=== PATIENT | male | born 1980 | race Caucasian/White ===

== ENCOUNTER 2023-05-21 16:15 | Inpatient (IN) | payer OTHER, SELFPAY ==
[2023-05-21] VITALS (10 sets, daily range): BP systolic 167–203; BP diastolic 114–140; PULSE 72–102; RESP 18–25; TEMP 36.6–36.8; O2SAT 95–99; BMI 33.4; BMI 33.5; BMI 32.1
--- NOTE | 2023-05-21 16:19 | CT_ITS ---
PROCEDURE INFORMATION: Exam: CT Head Without Contrast Exam date and time: 05/21/2023 4:28 PM Age: 43 years old Clinical indication: Stroke-like symptoms; Generalized weakness; Additional info: Stroke protocol, unilateral weakness TECHNIQUE: Imaging protocol: Computed tomography of the head without contrast. Radiation optimization: All CT scans at this facility use at least one of these dose optimization techniques: automated exposure control; mA and/or kV adjustment per patient size (includes targeted exams where dose is matched to clinical indication); or iterative reconstruction. Other technique: STROKE PROTOCOL was implemented. REPORTING DATA: Count of CT and Cardiac NM exams in prior 12 months: This patient has received 0 known CTs and 0 known cardiac nuclear medicine studies in the 12 months prior to the current study. COMPARISON: No relevant prior studies available. FINDINGS: Limitations: The study is mildly limited due to patient motion artifact. Brain: There is no acute intracranial hemorrhage, cerebral edema, or midline shift. A chronic left basal ganglia and thomas radiata infarct is present. Cerebral ventricles: No hydrocephalus. Paranasal sinuses: There is no acute sinusitis. Mastoid air cells: Visualized mastoid air cells are well aerated. Orbital cavities: The visualized orbits appear unremarkable. Bones/joints: No acute fracture. Soft tissues: Unremarkable. IMPRESSION: 1. No acute intracranial abnormality. 2. [facility] Stroke Program Early CT Score (ASPECTS) = 10
--- NOTE | 2023-05-21 16:19 | PC.NURSE ---
AFIA MENJIVAR at
--- NOTE | 2023-05-21 16:23 | CT_ITS ---
PROCEDURE INFORMATION: Exam: CTA Head With Contrast, Arteriography Exam date and time: 05/21/2023 4:33 PM Age: 43 years old Clinical indication: Stroke-like symptoms; Generalized weakness; Additional info: Stroke protocol TECHNIQUE: Imaging protocol: Computed tomographic angiography of the head with contrast. Exam focused on the arteries. 3D rendering (Not supervised by radiologist): MIP and/or 3D reconstructed images were created by the technologist. Radiation optimization: All CT scans at this facility use at least one of these dose optimization techniques: automated exposure control; mA and/or kV adjustment per patient size (includes targeted exams where dose is matched to clinical indication); or iterative reconstruction. Contrast material: ISOVUE; Contrast volume: 75 ml; Contrast route: INTRAVENOUS (IV); REPORTING DATA: Count of CT and Cardiac NM exams in prior 12 months: This patient has received 0 known CTs and 0 known cardiac nuclear medicine studies in the 12 months prior to the current study. COMPARISON: CT HEAD/BRAIN WO CON 05/21/2023 4:28 PM FINDINGS: ANTERIOR CIRCULATION: Right internal carotid artery: Intracranial segment is patent with no significant stenosis. No aneurysm. Right middle cerebral artery: There is beading of the right middle cerebral artery, possibly due to fibromuscular dysplasia or vasculitis. This is causing mild/moderate stenosis of the right M1 segment. Right anterior cerebral artery: No occlusion or significant stenosis. No aneurysm. Left internal carotid artery: Intracranial segment is patent with no significant stenosis. No aneurysm. Left middle cerebral artery: There is beading of the left middle cerebral artery, possibly due to fibromuscular dysplasia or vasculitis. This is causing severe stenosis of the distal left M1 segment. Severe stenosis of a posterior/inferior branch of the left MCA is also noted. Left anterior cerebral artery: No occlusion or significant stenosis. No aneurysm. POSTERIOR CIRCULATION: Right vertebral artery: No occlusion or significant stenosis. No aneurysm. Left vertebral artery: No occlusion or significant stenosis. No aneurysm. Basilar artery: No occlusion or significant stenosis. No aneurysm. Right posterior cerebral artery: No occlusion or significant stenosis. No aneurysm. Left posterior cerebral artery: No occlusion or significant stenosis. No aneurysm. Veins: The venous sinuses are patent. IMPRESSION: 1. There is beading of the left middle cerebral artery, possibly due to fibromuscular dysplasia or vasculitis. This is causing severe stenosis of the distal left M1 segment. Severe stenosis of a posterior/inferior branch of the left MCA is also noted. 2. There is beading of the right middle cerebral artery, possibly due to fibromuscular dysplasia or vasculitis. This is causing mild/moderate stenosis of the right M1 segment.
--- NOTE | 2023-05-21 16:23 | CT_ITS ---
PROCEDURE INFORMATION: Exam: CTA Neck With Contrast Exam date and time: 05/21/2023 4:33 PM Age: 43 years old Clinical indication: Stroke-like symptoms; Generalized weakness; Additional info: Stroke protocol TECHNIQUE: Imaging protocol: Computed tomographic angiography of the neck with contrast. 3D rendering (Not supervised by radiologist): MIP and/or 3D reconstructed images were created by the technologist. Radiation optimization: All CT scans at this facility use at least one of these dose optimization techniques: automated exposure control; mA and/or kV adjustment per patient size (includes targeted exams where dose is matched to clinical indication); or iterative reconstruction. Contrast material: ISOVUE; Contrast volume: 75 ml; Contrast route: INTRAVENOUS (IV); REPORTING DATA: Count of CT and Cardiac NM exams in prior 12 months: This patient has received 0 known CTs and 0 known cardiac nuclear medicine studies in the 12 months prior to the current study. COMPARISON: CT HEAD/BRAIN WO CON 05/21/2023 4:28 PM FINDINGS: Limitations: Evaluation is mildly limited by 2.5 mm thick axial images. Right common carotid artery: No stenosis. No dissection or occlusion. Right internal carotid artery: Minimal calcification is present at the right internal carotid artery origin. There is no stenosis. Right external carotid artery: No occlusion or stenosis of the origin. Left common carotid artery: There is mild plaque and luminal irregularity involving the distal left common carotid artery. There is no stenosis. Left internal carotid artery: Minor noncalcified plaque is present at the left internal carotid artery origin. This is causing less than 25% stenosis. Left external carotid artery: No occlusion or stenosis of the origin. Right vertebral artery: No stenosis. No dissection or occlusion. Left vertebral artery: No stenosis. No dissection or occlusion. Dental: Extensive dental disease is present. Soft tissues: Normal. No significant soft tissue swelling. Bones/joints: Moderate degenerative changes of the cervical spine are present. IMPRESSION: 1. No acute abnormality. 2. Chronic findings as discussed above. REFERENCES: NASCET CRITERIA. The degree of stenosis in the cervical segment of the internal carotid artery is based on NASCET criteria. Normal is no stenosis. Mild is less than 50% stenosis. Moderate is 50-69% stenosis. Severe is 70% to 99% stenosis. Total occlusion is no detectable patent lumen.
--- NOTE | 2023-05-21 16:25 | XR_ITS ---
PROCEDURE INFORMATION: Exam: XR Chest Exam date and time: 05/21/2023 4:36 PM Age: 43 years old Clinical indication: Dyspnea TECHNIQUE: Imaging protocol: Radiologic exam of the chest. Views: 1 view. COMPARISON: CT ANGIO NECK 05/21/2023 4:33 PM FINDINGS: Lungs: Unremarkable. No consolidation. Pleural spaces: No pleural effusion. No pneumothorax. Heart/Mediastinum: No significant cardiac silhouette enlargement. Bones/joints: Unremarkable. IMPRESSION: No acute findings.
--- NOTE | 2023-05-21 16:25 | ECG_ITS ---
APPROVED REPORT Exam: Resting ECG HR:87 bpm ECG Measurements Heart Rate 87 AXES OK 163 P -6 QRSd 128 QRS -21 QT 439 T 128 QTc 483 Conclusion SINUS RHYTHM LEFT VENTRICULAR HYPERTROPHY AND ST-T CHANGE [VOLTAGE CRITERIA PLUS ST/T ABNORMALITY] ANTEROLATERAL MYOCARDIAL INFARCTION , PROBABLY RECENT [40+ ms Q WAVE IN I/aVL/V3-V6] ACUTE NC UNCONFIRMED REPORT Electronically signed by : Robbin Scott MD 05/22/2023 06:59:11
--- NOTE | 2023-05-21 16:26 | HMH.EDGENADL ---
Discharge Plan Disposition Chief Complaint: Neuro Symptoms/Deficit Clinical Impressions Clinical Impression: Acute CVA (cerebrovascular accident), Hypertensive emergency, Hypokalemia Discharge ED Provider: Mary Ann Nava General Adult HPI General Chief complaint: Neuro Symptoms/Deficit Stated complaint: L sided numbness Time Seen by Provider: 05/21/23 16:18 History of Present Illness HPI narrative: Patient is a 43-year-old male with a history of hypertension presenting today with sudden onset of right upper and right lower extremity coordination changes and difficulty with movement. States he had sudden onset around 10 to 10:30 AM this morning of his symptoms. He has been having difficulty walking since that time. States that he just has a hard time doing the things that he wants to do with the right side of his body. Denies any changes in mental status changes in vision or changes in strength specifically. No fevers or chills or any other medical problems in the past other than the hypertension and hypokalemia chronically. Related Data Allergies Allergy/AdvReac Type Severity Reaction Status Date / Time lisinopril Allergy Verified 05/21/23 16:18 [facility] Disclaimer: The information contained in this section may have been updated after the patient was seen, as this information can be updated by other users. Social History Smoking Status: Current every day smoker alcohol intake: never current occupational status: other Travel in the last 8 weeks: None ROS Obtained: Yes All systems reviewed & no additional complaints except as documented Physical Exam General General appearance: alert Respiratory Respiratory exam: Present normal lung sounds bilaterally Cardiovascular Cardiovascular exam: Present regular rate; Absent tachycardia Neurological Exam Neurological exam: Present alert and oriented X3 Expanded Neurological Exam Patient oriented to: Present person, place and time Speech: Present fluid speech; Absent receptive aphasia, expressive aphasia or total aphasia Cranial nerves: Normal: EOM function (II, III, IV, ), facial sensation (V), facial palsy (VII), gag reflex (IX), spinal accessory function (XI) and tongue deviation (XII) Cerebellar function: Abnormal Left: finger to nose Cerebellar function: ataxic gait (Difficulty with heel-to-toe walking) Motor strength - LUE: 5/5 Motor strength - RUE: 5/5 Motor strength - LLE: 5/5 Motor strength - RLE: 5/5 Upper motor neuron exam: Normal: eloina neglect, pronator drift, Babinski sign and sensory extinction Sensory exam upper extremity: Normal: light touch, pin prick, temperature and 2 point discrimination Sensory exam lower extremity: Normal: light touch, pin prick, temperature and 2 point discrimination Coma scale eye opening: Spontaneous Coma scale motor response: Obeys commands Coma scale verbal response: Oriented Coma scale total: 15 Medical Decision Making Oskar Inquiry Pt receiving controlled substance: No Vital Signs: 05/21/23 16:16 05/21/23 16:52 Temperature 98.2 F Temperature Source Oral Pulse Rate 86 Pulse Rate [Right] 102 H Respiratory Rate 20 25 H Blood Pressure 186/120 H Blood Pressure [Right Arm] 203/140 H Blood Pressure Mean [Right Arm] 161 Blood Pressure Source [Right Arm] Automatic Cuff Blood Pressure Position [Right Arm] Sitting 02 Sat by Pulse Oximetry 98 96 Oxygen Delivery Method Room Air Room Air Lab Data Lab results reviewed: Yes I reviewed the patient's lab results. Lab Results 05/21/23 16:16: WBC 10.0, RBC 5.90, Hgb 16.1, Hct 49.6, MCV 84.0, MCH 27.2, MCHC 32.4, RDW 14.3, Plt Count 174, MPV 8.6, Neut % (Auto) 61.4, Lymph % (Auto) 29.0, [place] % (Auto) 7.1, Eos % (Auto) 2.0, Baso % (Auto) 0.6, Neut # (Auto) 6.1, Lymph # (Auto) 2.9, [place] # (Auto) 0.7, Eos # (Auto) 0.2, Baso # (Auto) 0.1, PT 10.5, INR 0.97, APTT 28.1, Sodium 133 L, Potassium 2.6 L*, Chloride 96 L, Carbon Dioxide 28, Anion Gap 11.6, BUN 12, C
[2023-05-21 16:32] LABS: Basophils # 0.1 K/mm3 (0-0.2); Basophils % 0.6 % (0.1-2.0); Eosinophils # 0.2 K/mm3 (0.0-0.4); Hematocrit 49.6 % (42.0-52.0); Hemoglobin 16.1 g/dL (14.1-18.0); Lymphocytes # 2.9 K/mm3 (0.7-4.5); Mean Corpuscular HGB Conc 32.4 g/dL (31.8-35.4); Mean Corpuscular Hemoglobin 27.2 pg (27.0-31.2); Mean Platelet Volume 8.6 fl (7.4-10.4); Monocytes # 0.7 K/mm3 (0.1-1.0); Monocytes % 7.1 % (1.7-9.3); Neutrophils # 6.1 K/mm3 (1.8-7.8); Neutrophils % 61.4 % (37.0-80.0); Platelet Count 174 K/mm3 (142-424); Red Cell Distribution Width 14.3 % (11.5-17.5)
[2023-05-21 16:38] LABS: Alanine Aminotransferase 29 U/L (12-78); Albumin Level 4.6 g/dl (3.5-5.0); Albumin/Globulin Ratio 1.3 (1.1-1.8); Alkaline Phosphatase 102 U/L (38-126); Anion Gap 11.6 mEq/L (5-15); Aspartate Amino Transferase 40 U/L (17-59); Bilirubin,Total 0.6 mg/dl (0.2-1.3); Blood Urea Nitrogen 12 mg/dl (9-20); Calcium 9.1 mg/dl (8.4-10.2); Carbon Dioxide 28 mmol/L (22.0-30.0); Chloride 96 mmol/L (98-107); Creatinine Clearance Estimated 119 mL/min (50-200); Estimated Glomerular Filt Rate 66 ml/min (>60); GFR (African American) 80 ML/MIN (>60); Globulin 3.6 g/dL (1.3-3.2); Glucose 103 mg/dl (74-100); Sodium 133 mmol/L (136-145); Total Protein,Serum 8.2 g/dl (6.3-8.2)
[2023-05-21 16:41] LABS: Activated Partial Thrombo Time 28.1 seconds (22.8-30.6); INR 0.97 (0.9-1.1); Prothrombin Time 10.5 seconds (10.1-12.5)
--- NOTE | 2023-05-21 16:41 | PC.NURSE ---
AFIA MENJIVAR speaking with CYRIL
[2023-05-21 16:47] LABS: Potassium 2.6 mmoL/L (3.5-5.1)
--- NOTE | 2023-05-21 16:52 | PC.NURSE ---
ER MD Nava speaking with hospitalist.
--- NOTE | 2023-05-21 16:55 | PC.NURSE ---
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
--- NOTE | 2023-05-21 16:59 | PC.NURSE ---
gave pt a urinal, assisting use
[2023-05-21 17:06] LABS: Coronavirus 19, PCR Not Detected (NotDetected); Influenza A, PCR Not Detected (NotDetected); Influenza B, PCR Not Detected (NotDetected)
--- NOTE | 2023-05-21 17:44 | PC.NURSE ---
AFIA Nava speaking with CYRIL
--- NOTE | 2023-05-21 17:48 | PC.NURSE ---
Report called to Linda RICK
--- NOTE | 2023-05-21 18:07 | PC.NURSE ---
arrived to floor by w/c from ED
--- NOTE | 2023-05-21 18:35 | PC.NURSE ---
med req done from medication bottles, three medication bottles brought, all empty, last filled date on bottles 11/29
--- NOTE | 2023-05-21 19:10 | EXP.HP ---
History of Present Illness *Admission Date: 05/21/23 *Reason for visit:: right upper and lower extremity ataxia x 1 day *History of present illness: 43-year-old male with history of hypertension, who recently moved here to [place] from [place], not established with a primary care, on antihypertensive medication was brought to the emergency room by his as he started experiencing uncoordinated sudden onset movements of his right upper and lower extremity. He said he felt extremely fatigued and tired and was having some dizziness for the last 2 days. He said he ran out of his antihypertensive medications including carvedilol and chlorthalidone probably was running high blood pressure because of this reason. Today while he was at his workplace start experiencing significant uncoordinated movement of his right upper and lower extremity. Then he felt that his legs and arms were significantly weak only on the right side. He had to drag his foot to walk. This made him come to the ER. In the ER stroke protocol was initiated. His initial vitals show that his blood pressure was significantly elevated in the 190s systolic. He was pretty much alert awake oriented x3 and able to give a history. He did not experience any slurred speech or facial droop. His CT scan of head without contrast was unremarkable. His CTA of head and neck showed beading appearance of the left cerebral artery and significant left M1 stenosis and severe stenosis of posterior inferior branch of left MCA. Given his delayed presentation he was not deemed a tPA candidate. He was diagnosed with acute left MCA territory CVA and being admitted for further management. When I saw him in the room patient was able to narrate his history without any difficulty. His is at bedside who agreed to the history. He states his right-sided weakness is unchanged since it started. No other new neurological deficits reported. He has difficulty walking and lifting things with his right hand. His vision is unaffected. He denies any chest pain, shortness of breath, abdominal pain, nausea vomiting, joint pains or skin rashes He is a three-quarter pack smoker for over 20 years. Denies excessive alcohol abuse or illicit drug use. Review of systems negative except for what is mentioned above [facility] Disclaimer: The information contained in this section may have been updated after the patient was seen, as this information can be updated by other users. Medical History Hypertension Family History Mother Lung cancer Father Family history of myocardial infarction Social History Smoking Status: Current every day smoker alcohol intake: never current occupational status: other Travel in the last 8 weeks: None Review of Systems Review of Systems Review of systems:: pertinent systems reviewed and negative unless documented below Meds Home Medications and Allergies Home Medications Medication Instructions Recorded Confirmed Type carvedilol 12.5 mg tablet 12.5 mg PO BID High Blood Pressure 05/21/23 05/21/23 History chlorthalidone 50 mg tablet 50 mg PO DAILY High Blood Pressure 05/21/23 05/21/23 History potassium chloride 20 mEq 20 meq PO TID Supplement 05/21/23 05/21/23 History tablet,extended release New Prescriptions to Start Prescriptions: Allergies Allergy/AdvReac Type Severity Reaction Status Date / Time lisinopril Allergy Verified 05/21/23 18:08 Exam Data for Last 24 hours Vital signs and Labs for Last 24 Hours: Temp Pulse Resp BP Pulse Ox O2 Del Method 98.2 F 77 18 195/114 H 99 Room Air 05/21/23 18:07 05/21/23 18:07 05/21/23 18:07 05/21/23 18:07 05/21/23 18:07 05/21/23 18:48 Laboratory Results - last 24 hr 05/21/23 16:16: WBC 10.0, RBC 5.90, Hgb 16.1, Hct 49.6, MCV 84
[2023-05-21 20:47] LABS: POC Glucose,Bedside 106 (70-110)
--- NOTE | 2023-05-21 21:39 | PC.NURSE ---
LACE ROLLER made aware of BP of 169/117, LACE ROLLER advised RN not to give PRN medication. Stated to only give PRN if BOTH SBP and DBP was greater than 220/110. Also LACE ROLLER made aware of unavailability of 300 mg aspirin suppository, was okay to hold until tomorrow. Pt remains NPO.
[2023-05-22] VITALS (7 sets, daily range): BP systolic 143–159; BP diastolic 86–104; PULSE 60–90; RESP 18; TEMP 36.4–36.9; O2SAT 98–99; BMI 33.1
--- NOTE | 2023-05-22 04:58 | PC.NURSE ---
Patient has rested very well tonight. no issues were stated by patient. Family remains at bedside.
[2023-05-22 06:25] LABS: POC Glucose,Bedside 120 (70-110)
[2023-05-22 08:58] LABS: Alanine Aminotransferase 19 U/L (12-78); Albumin/Globulin Ratio 1.3 (1.1-1.8); Alkaline Phosphatase 109 U/L (38-126); Anion Gap 9.1 mEq/L (5-15); Aspartate Amino Transferase 29 U/L (17-59); Bilirubin,Total 0.7 mg/dl (0.2-1.3); Blood Urea Nitrogen 10 mg/dl (9-20); Calcium 9.1 mg/dl (8.4-10.2); Carbon Dioxide 28 mmol/L (22.0-30.0); Chloride 103 mmol/L (98-107); Chol/HDL Ratio 8.3 (1-3.5); Cholesterol 199 mg/dl (140-200); Creatinine Clearance Estimated 142 mL/min (50-200); Estimated Glomerular Filt Rate 82 ml/min (>60); GFR (African American) 99 ML/MIN (>60); Globulin 3.2 g/dL (1.3-3.2); Glucose 126 mg/dl (74-100); HDL Cholesterol 24 mg/dl (40-60); Magnesium 2.1 mg/dl (1.6-2.3); Phosphorous 2.9 mg/dl (2.5-4.5); Potassium 3.1 mmoL/L (3.5-5.1); Sodium 137 mmol/L (136-145); Total Protein,Serum 7.2 g/dl (6.3-8.2); Triglycerides 291 mg/dl (30-150); VLDL Cholesterol 58 mg/dL (0-40)
[2023-05-22 09:09] LABS: Direct LDL Cholesterol 117.18 mg/dL (100-129)
[2023-05-22 10:04] LABS: Hemoglobin A1C 5.5 % (4.0-6.0)
--- NOTE | 2023-05-22 10:36 | P.CONPHA_ITS ---
Pharmacy Intervention Comments: MEDICATION RECONCILIATION COMPLETE USING MEDICATION BOTTLES. CALLED GRISEL WHO STATED HE HAD FILLED CARVEDILOL, CHLORTHALIDONE, AND POTASSIUM AT [facility] [place] LAST IN 02/2022. MOST RECENT PHARMACY USED (FILLED 11/2022) WAS [facility] [place] WHO IS CLOSED ON THE WEEKEND.
--- NOTE | 2023-05-22 10:36 | HMH.PHAINT1 ---
Pharmacy Intervention Comments: MEDICATION RECONCILIATION COMPLETE USING MEDICATION BOTTLES. CALLED GRISEL WHO STATED HE HAD FILLED CARVEDILOL, CHLORTHALIDONE, AND POTASSIUM AT [facility] [place] LAST IN 02/2022. MOST RECENT PHARMACY USED (FILLED 11/2022) WAS [facility] [place] WHO IS CLOSED ON THE WEEKEND.
[2023-05-22 11:45] LABS: POC Glucose,Bedside 128 (70-110)
--- NOTE | 2023-05-22 12:01 | HMH.PTEV ---
Physical Therapy Evaluation Rehab PT IP Evaluation Start: 05/21/23 17:56 Freq: ONCE Status: Active Protocol: Document 05/22/23 11:40 RADHA (Rec: 05/22/23 12:01 HWADE [id number]) Subjective/History History History Pt is a 43 year old male that presented to [facility] ED with reports of difficulty walking, R sided weakness and uncoordinated movements. While in the ED, stroke protocol was initiated. His initial vitals show that his blood pressure was significantly elevated in the 190s systolic. Pt was AO x3 and able to provide history. Pt did not experience any slurred speech or facial droop. His CT scan of head without contrast was unremarkable. His CTA of head and neck showed beading appearance of the left cerebral artery and significant left M1 stenosis and severe stenosis of posterior inferior branch of left MCA. Pt was not a candidate for tPA due to delayed presentation of symptoms. Pt was diagnosed with acute left MCA territory CVA and being admitted for further management. 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 Pt lives at home with his and adult children in a [facility] with 0 [address]AN[address]. At baseline, pt was independent with all B/ IADL's. Pt did not use an AD to ambulate Subjective Subjective Pt presents supine in bed with at side, pt agreeable to PT evaluation. Pt denies reports of pain at rest. Pt reports that he still feels weakness and difficulty with coordination for RUE and RLE. Pt denies reports of visual or speech dimple
--- NOTE | 2023-05-22 13:49 | HMH.SLDYSPHA ---
Speech & Language Evaluation Speech/Language Dysphagia Evaluation Start: 05/22/23 13:42 Freq: ONCE Status: Active Protocol: Document 05/22/23 13:42 BENNY (Rec: 05/22/23 13:49 BENNY [id number]) Dysphagia Assess/Goals/Plan Assessment Date of Evaluation: 05/22/23 Evaluation Type Initial Certification Assessment/Problems CVA Does Patient Qualify for Service No Qualify/Failure Comment Based on the results of the clinical swallow evaluation, pt does not require further skilled ST services at this time. Recommendations PHYSICIAN CERTIFICATION: The specified therapy services are required, authorized, and reviewed every 30 days. Diet Recommendations Normal Liquid Type Recommendations Normal/Thin SL Swallow Guidelines Alt bite w/sip thru meal Dysphagia Swallow Precautions/Strategies Sitting Upright (90 deg),Small Bites and Sips,Alternate Liquids/Solids Place Food on Either side of Mouth Plan Pt/Guardian verbally ack understanding Yes of dx/prognosis/goals Pt/Guardian verbally ack understanding Yes of/consent to tx prog G -code Required No Education Instructions provided CSE results and recommendations discussed with pt, nursing, and MD who expressed understanding. Pt/Caregiver able to recall information Able to recall/restate Reinforcement needed No Speech & Language HPI History Present Illness Description of Patient Problem Mr. Miramontes is a 43 year old male who presenting to [facility] ED with c/o right upper and lower extremity ataxia. No facial droop or slurred speech was noted in the ED. He was diagnosed with an acute left MCA territory CVA. He does have a history of hypertension , but has not been on his medication for several days. He is currently on a clear liquid diet. Rehab Services Assessed Speech therapy General Information General Current Food Consistancy Clear Liquids Dentition Good Dentition Oxygen Status Room Air Facial Symmetry Symmetrical Patient Orientation Person,Place,Time,Situation Ability to Follow Directions Excellent Communication Ability No Impairment Dysphagia:Food Present
--- NOTE | 2023-05-22 14:45 | EXP.ACUTE.PN ---
Subjective *Date: 05/22/23 *Time: 14:45 Interval history: Blood pressure improving No change in the neuro status overnight, no new deficit. Existing right upper and lower extremity motor deficit persisting Potassium improved from 2.6--> 3.1 A1c 5.5 LDL 117, total cholesterol 291, HDL 24 No new complaints Patient requesting food, passed bedside evaluation with a swallow evaluation and then speech therapy also evaluated and cleared the patient for regular diet Medical Exam Vital signs and Labs for Last 24 Hours: Vital Signs Temp Pulse Pulse Resp BP BP Pulse Ox 05/22/23 13:11 05/22/23 11:09 05/22/23 13:42 05/22/23 07:30 90 05/22/23 09:30 05/22/23 09:30 05/22/23 07:27 97.6 F 68 18 152/93 H 99 05/22/23 04:00 70 05/22/23 04:00 97.7 F 60 18 143/86 H 98 05/22/23 06:49 05/22/23 04:58 05/22/23 03:00 05/22/23 01:00 05/22/23 00:00 70 05/21/23 20:00 80 05/22/23 00:00 98.4 F 72 18 154/104 H 98 05/21/23 23:00 05/21/23 21:00 05/21/23 20:00 05/21/23 20:00 97.8 F 76 18 167/117 H 99 05/21/23 18:48 05/21/23 18:07 98.2 F 77 18 195/114 H 99 05/21/23 17:58 74 18 195/114 H 98 05/21/23 17:31 74 18 193/127 H 95 05/21/23 17:11 79 21 200/139 H 97 05/21/23 16:42 97 H 18 186/120 H 97 05/21/23 16:17 97 H 18 203/140 H 97 05/21/23 17:49 98.2 F 72 20 193/127 H 05/21/23 16:52 86 25 H 186/120 H 96 05/21/23 16:16 98.2 F 102 H 20 203/140 H 98 O2 Del Method 05/22/23 13:11 Room Air 05/22/23 11:09 Room Air 05/22/23 13:42 Room Air 05/22/23 07:30 05/22/23 09:30 Room Air 05/22/23 09:30 Room Air 05/22/23 07:27 Room Air 05/22/23 04:00 05/22/23 04:00 05/22/23 06:49 Room Air 05/22/23 04:58 Room Air 05/22/23 03:00 Room Air 05/22/23 01:00 Room Air 05/22/23 00:00 05/21/23 20:00 05/22/23 00:00 Room Air 05/21/23 23:00 Room Air 05/21/23 21:00 Room Air 05/21/23 20:00 Room Air 05/21/23 20:00 Room Air 05/21/23 18:48 Room Air 05/21/23 18:07 Room Air 05/21/23 17:58 05/21/23 17:31 05/21/23 17:11 05/21/23 16:42 05/21/23 16:17 05/21/23 17:49 Room Air 05/21/23 16:52 Room Air 05/21/23 16:16 Room Air Intake and Output 05/21/23 05/22/23 05/22/23 23:59 07:59 15:59 Intake Total 0 / 360 360 / 360 Output Total 650 / 650 0 / 0 0 / 0 Balance -650 / -650 0 / 360 360 / 360 Intake: Intake, Oral Amount 0 / 360 360 / 360 Output: Output, Urine Amount 650 / 650 0 / 0 0 / 0 Other: Number of Unmeasured Voids 1 1 Weight 101.803 kg 105.035 kg Patient Weight 05/22/23 23:59 Weight 105.035 kg Laboratory Results - last 24 hr 05/21/23 16:16: WBC 10.0, RBC 5.90, Hgb 16.1, Hct 49.6, MCV 84.0, MCH 27.2, MCHC 32.4, RDW 14.3, Plt Count 174, MPV 8.6, Neut % (Auto) 61.4, Lymph % (Auto) 29.0, [place] % (Auto) 7.1, Eos % (Auto) 2.0, Baso % (Auto) 0.6, Neut # (Auto) 6.1, Lymph # (Auto) 2.9, [place] # (Auto) 0.7, Eos # (Auto) 0.2, Baso # (Auto) 0.1, PT 10.5, INR 0.97, APTT 28.1, Sodium 133 L, Potassium 2.6 L*, Chloride 96 L, Carbon Dioxide 28, Anion Gap 11.6, BUN 12, Creatinine 1.20, Estimated Creat Clear 119, Estimated GFR 66, Est GFR ( Amer) 80, Glucose 103 H, Calcium 9.1, Total Bilirubin 0.6, AST 40, ALT 29, Alkaline Phosphatase 102, Total Protein 8.2, Albumin 4.6, Globulin 3.6 H, Albumin/Globulin Ratio 1.3 05/21/23 16:55: SARS-CoV-2 (PCR) Not detected, Influenza A Untype (PCR) Not detected, Influenza Type B (PCR) Not detected 05/21/23 20:36: POC Glucose 106 05/22/23 06:06: POC Glucose 120 H 05/22/23 07:35: Sodium 137, Potassium 3.1 L, Chloride 103, Carbon Dioxide 28, Anion Gap 9.1, BUN 10, Creatinine 1.00, Estimated Creat Clear 142, Estimated GFR 82, Est GFR ( Amer) 99 D, Glucose 126 H D, Hemoglobin A1c 5.5, Calcium 9.1, Phosphorus 2.9, Magnesium 2.1, Total Bilirubin 0.7, AST 29 D,
--- NOTE | 2023-05-22 17:29 | PC.NURSE ---
No acute changes noted. Patient still hypertensive, MD aware. New medications added to slowly decrease blood pressure. Patient alert and oriented times 4 during shift. Weakness noted on right side in both arms and legs but patient able to use both extremities. NIH 4 due to ataxia and drift in right arm and right leg. Patient able to tolerate diet.
--- NOTE | 2023-05-22 18:03 | PC.NURSE ---
No acute changes noted. Patient still hypertensive, MD aware. New medications added to slowly decrease blood pressure. Patient alert and oriented times 4 during shift. Weakness noted on right side in both arms and legs but patient able to use both extremities. NIH 5 due to ataxia, drift in right arm, right leg, and partial sensory loss on right side. Bedside swallow performed and patient able to drink water without difficulty or coughing. MD aware and clear liquid diet ordered. Speech performed swallow eval and recommended regular, thin liquid diet. MD aware and cardiac diet ordered. Patient able to tolerate diet and po medications.
--- NOTE | 2023-05-23 00:30 | EXP.PN ---
Subjective *Date: 05/23/23 *Time: 12:44 Interval history: No acute events overnight. His right side feels stronger than yesterday. Exam Data for Last 24 hours Vital signs and Labs for Last 24 Hours: Temp Pulse Resp BP Pulse Ox O2 Del Method 98 F 75 18 159/94 H 99 Room Air 05/22/23 20:00 05/22/23 20:00 05/22/23 20:00 05/22/23 20:00 05/22/23 15:51 05/22/23 23:00 Laboratory Results - last 24 hr 05/22/23 06:06: POC Glucose 120 H 05/22/23 07:35: Sodium 137, Potassium 3.1 L, Chloride 103, Carbon Dioxide 28, Anion Gap 9.1, BUN 10, Creatinine 1.00, Estimated Creat Clear 142, Estimated GFR 82, Est GFR ( Amer) 99 D, Glucose 126 H D, Hemoglobin A1c 5.5, Calcium 9.1, Phosphorus 2.9, Magnesium 2.1, Total Bilirubin 0.7, AST 29 D, ALT 19 D, Alkaline Phosphatase 109, Total Protein 7.2, Albumin 4.0 D, Globulin 3.2, Albumin/Globulin Ratio 1.3, Triglycerides 291 H, Cholesterol 199, LDL Cholesterol Direct 117.18, VLDL Cholesterol 58 H, HDL Cholesterol 24 L, Cholesterol/HDL Ratio 8.3 H 05/22/23 11:29: POC Glucose 128 H I & O for Last 24 hours: Intake & Output 05/20/23 05/21/23 05/22/23 05/23/23 23:59 23:59 23:59 23:59 Intake Total 840 / 840 Output Total 650 / 650 0 / 0 Balance -650 / -650 840 / 840 Weight 101.803 kg 105.035 kg Constitutional Constitutional: no acute distress *Routine HEENT Exam Head: Present normocephalic Eye: Present EOMI and PERRL ENT: Present mucous membranes moist *Routine Neck Exam Neck: Present supple; Absent lymphadenopathy *Routine Respiratory Exam Respiratory: Present CTA bilaterally *Routine Cardiovascular Exam Cardiovascular: Present RRR *Routine Abdominal Exam Abdominal: Present soft and normoactive bowel sounds; Absent tenderness *Routine Extremities Exam Extremities: Absent cyanosis, clubbing or edema *Routine Skin Exam Skin: Present warm; Absent rash *Routine Neurological Exam Neurological: Present alert, oriented X3 and CN II-XII intact Comments: sensation to light touch is symmetric strength in RUE is 4/5, strength in RLE is 3 to 4/5 finger to nose with RUE is poor heel to bach exam is normal bilaterally Assessment and Plan *Assessment and plan (1) Acute CVA (cerebrovascular accident): Status: Acute Category: Medical Code(s): I63.9 - Cerebral infarction, unspecified (2) Hypertensive emergency: Status: Acute Category: Medical Code(s): I16.1 - Hypertensive emergency (3) Hypokalemia: Status: Acute Category: Medical Code(s): E87.6 - Hypokalemia (4) Noncompliance with medication regimen: Status: Acute Category: Medical Code(s): Z91.148 - Patient's other noncompliance with medication regimen for other reason (5) Nicotine dependence: Status: Acute Qualifiers: Nicotine product type: cigarettes Substance use status: unspecified nicotine-induced disorder Qualified Code(s): F17.219 - Nicotine dependence, cigarettes, with unspecified nicotine-induced disorders Category: Medical Code(s): F17.200 - Nicotine dependence, unspecified, uncomplicated Plan Mr. Miramontes is a 43 year old male with a past medical history of hypertension, cigarette nicotine dependence (>10 pack year history), who recently moved from [place] and hasn't established care with a PCP, who presented with weakness and involuntary movements of the right upper and lower extremities. He was admitted on 05/21 acute CVA of the left MCA territory. TPA could not be administered due to his late presentation. #apical thrombus, 1.5cm -I received preliminary report of the patient's echocardiogram regarding a 1.5cm apical thrombus. Will consult Cardiology. #acute CVA, left MCA territory -CTA head/neck with beading appearance of the left cerebral artery with stenosis of the left M1 and significant stenosis of the posterior/inferior branch of the left MCA -A1c is 5.5, LDL 117, total cholesterol 291, HD
[2023-05-23 04:00] VITALS: BP 157/109; PULSE 72; RESP 18; TEMP 36.5; O2SAT 97; BMI 33.1
--- NOTE | 2023-05-23 04:50 | PC.NURSE ---
Patient has rested well. Patient did ambulate down the hallway before bed with a walker and stand by assist. Did very well. Still stated weakness on that right side. No issues were stated by patient or family
--- NOTE | 2023-05-23 06:00 | MR_ITS ---
FINAL REPORT TECHNIQUE: Multiplanar MR, without contrast administration CLINICAL HISTORY: Left MCA territory CVA. STROKE. RIGHT SIDED WEAKNESS COMPARISON: 05/21/2023 FINDINGS: There is no mass effect or midline shift. There is no hydrocephalus. Abnormal signal intensity is seen in the left basal ganglia and left periventricular white matter. In the more medial and anterior left basal ganglia is abnormality with decreased signal intensity on gradient echo imaging suggestive of hemosiderin. Focal atrophy is seen of the more anterior periventricular white matter. Posterior fossa is without acute abnormality. On diffusion-weighted imaging, restricted diffusion is seen in the posterior left basal ganglia and posterior left periventricular white matter consistent with acute ischemia. IMPRESSION: Acute infarct of the posterior left basal ganglia and left periventricular white matter. Likely chronic ischemic changes, more anteriorly in the left basal ganglia and anterior left periventricular right matter with evidence of hemosiderin. Reviewed, Interpreted and Dictated by Susanne Daugherty MD Transcribed by Halima Jama Authenticated and [facility]
[2023-05-23 06:38] LABS: Anion Gap 8.5 mEq/L (5-15); Blood Urea Nitrogen 15 mg/dl (9-20); Calcium 8.6 mg/dl (8.4-10.2); Carbon Dioxide 26 mmol/L (22.0-30.0); Chloride 104 mmol/L (98-107); Creatinine Clearance Estimated 142 mL/min (50-200); Estimated Glomerular Filt Rate 82 ml/min (>60); GFR (African American) 99 ML/MIN (>60); Glucose 137 mg/dl (74-100); Potassium 3.5 mmoL/L (3.5-5.1); Sodium 135 mmol/L (136-145)
[2023-05-23 08:00] VITALS: BP 151/94; PULSE 73; RESP 17; TEMP 36.6; O2SAT 97
--- NOTE | 2023-05-23 08:48 | PC.NURSE ---
IV placed to left forearm 20 gauge.
--- NOTE | 2023-05-23 10:34 | PC.NURSE ---
pt to rad
--- NOTE | 2023-05-23 11:01 | HMH.OTEV ---
OT Inpatient Evaluation Rehab OT IP Evaluation Start: 05/21/23 17:56 Freq: ONCE Status: Active Protocol: Document 05/23/23 10:54 [facility] (Rec: 05/23/23 11:00 [facility] [id number]) Rehab OT IP Assessment Subjective History Pt oriented x 3 on arrival. Pt is a 43 year old male that presented to [facility] ED with reports of difficulty walking, R sided weakness and uncoordinated movements. While in the ED, stroke protocol was initiated. His initial vitals show that his blood pressure was significantly elevated in the 190s systolic. Pt was AO x3 and able to provide history. Pt did not experience any slurred speech or facial droop. His CT scan of head without contrast was unremarkable. His CTA of head and neck showed beading appearance of the left cerebral artery and significant left M1 stenosis and severe stenosis of posterior inferior branch of left MCA. Pt was not a candidate for tPA due to delayed presentation of symptoms. Pt was diagnosed with acute left MCA territory CVA and being admitted for further management. PMH: HTN Pt lives at home with his and children. 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 Pt is normally independent with all ADLs and IADLs. Pt still drives. Pt did not use an AD to ambulate Subjective I just want it to get back to normal. Objective Patient Orientation Person,Place,Birthday Upper Extremity Gross ROM Mod Limitation 50% Shoulder ROM Limitations Muscle Weakness Elbow ROM Limitations Muscle Weakness Wrist Limitations of Range of Motion Muscle Weakness Bed Mobility bed mobility-scooting,bed mobility - supine/sit,bed
--- NOTE | 2023-05-23 11:43 | SW/DCPLANNER ---
Addendum entered by Linda Magaña 05/30/23 11:40: The plan for this patient is to discharge home w/ family assistance and return to [facility] outpatient rehab. Patient will discharge today. Addendum entered by Linda Magaña 05/26/23 15:01: Patient plans to return home w/ family at time of discharge. Original Note: I spoke with this patient's regarding plans once medically stable for discharge. stated they just moved to [place] w/ their two daughters and do not currently have health insurance. I have asked that Mary Ann Vergara speak w/ patient today regarding situation. Patient/family would be interested in placement at [facility] if he is able to be set up w/ health insurance. I will continue to follow up with patient/family and MD.
[2023-05-23 14:15] LABS: Benzodiazepines Screen,Urine Negative ng/ml (<200)
[2023-05-23 14:16] LABS: Amphetamine/Metha Screen,Urine Negative ng/ml (<1000)
[2023-05-23 14:17] LABS: Barbiturates Screen,Urine Negative ng/ml (<200); Cannabinoid Screen,Urine Negative ng/ml (<50)
[2023-05-23 14:18] LABS: Cocaine Screen,Urine Negative ng/ml (<300); Methadone Screen,Urine Negative ng/ml (<300)
[2023-05-23 14:19] LABS: Opiate Screen,Urine Negative ng/ml (<300)
[2023-05-23 14:20] LABS: Phencyclidine Screen,Urine Negative ng/ml (<25)
[2023-05-23 15:16] VITALS: BP 148/90; PULSE 75; RESP 17; TEMP 36.6; O2SAT 98
--- NOTE | 2023-05-23 16:40 | HMH.PHAHEP ---
[facility] Pharmacy Heparin Dosing Demographic Data Admission date:: 05/23/23 Date: 05/23/23 Time: 16:40 Allergies Allergy/AdvReac Type Severity Reaction Status Date / Time lisinopril Allergy Verified 05/21/23 18:08 Height: 1.78 m Weight: 105 kg Indication Medication therapy:: Heparin Current Indications:: LEFT THOMBOSIS AND STROKE Current Active Problems (Updated 05/30/23 @ 12:49 by Grace Brand APRN) Nicotine dependence (Acute) Acute CVA (cerebrovascular accident) (Acute) Myocardial infarction of anterior wall (Acute) LV (left ventricular) mural thrombus following ND (Acute) Hypertensive emergency (Acute) Hypokalemia (Acute) Noncompliance with medication regimen (Acute) CVA?: Yes Bleeding problem?: No Kidney disease?: No ND?: No Desired PTT range:: 50-75 seconds Labs Anticoagulation Lab Results:: A Monitoring Dose Monitor 1: Date: 05/23/23 Time: 16:25 PTT Result:: 29.2 Infusion Rate:: 1900 UNITS/HR (38 ML/HR), 8400 UNITS BOLUS Dose Monitor 2: Date: 05/23/23 Time: 19:36 PTT Result:: 88.0 Infusion Rate:: 2110 UNITS/HR (42.2 ML/HR) Dose Monitor 3: Date: 05/24/23 Time: 04:13 PTT Result:: 68.6 Infusion Rate:: 2110 UNITS/HR (42.2 ML/HR) Dose Monitor 4: Date: 05/24/23 Time: 10:00 PTT Result:: 64.5 Infusion Rate:: 2110 UNITS/HR (42.2 ML/HR) Dose Monitor 5: Date: 05/24/23 Time: 18:20 PTT Result:: 27.6 Infusion Rate:: 2110 UNITS/HR (42.2 ML/HR) REBOLUS WITH 4000 UNITS. Dose Monitor 6: Date: 05/25/23 Time: 02:45 PTT Result:: 80.4 Infusion Rate:: 2000 UNITS/HR (40 ML/HR) Dose Monitor 7: Date: 05/25/23 Time: 08:22 PTT Result:: 78.0 Infusion Rate:: 2000 UNITS/HR (40 ML/HR) Dose Monitor 8: Date: 05/25/23 Time: 12:56 PTT Result:: 74.4 Infusion Rate:: 2000 UNITS/HR (40 ML/HR) Dose Monitor 9: Date: 05/25/23 Time: 20:45 PTT Result:: 56.4 Infusion Rate:: 2000 UNITS/HR (40 ML/HR) Dose Monitor 10: Date: 05/26/23 Time: 03:00 PTT Result:: 67.9 Infusion Rate:: 2000 UNITS/HR (40 ML/HR) Dose Monitor 11: Date: 05/26/23 Time: 08:53 PTT Result:: 72.9 Infusion Rate:: HEPARIN 2000 UNITS/HR Dose Monitor 12: Date: 05/26/23 Time: 14:57 PTT Result:: 70.8 Infusion Rate:: 2000 UNITS/HR Dose Monitor 13: Date: 05/26/23 Time: 20:55 PTT Result:: 75.8 Infusion Rate:: HEPARIN 2000 UNITS/HR Dose Monitor 14: Date: 05/27/23 Time: 06:05 PTT Result:: 68.1 Infusion Rate:: HEPARIN 2000 UNITS/HR Dose Monitor 15: Date: 05/27/23 Time: 17:50 PTT Result:: 89.1 Infusion Rate:: HEPARIN 1800 UNITS/HR Dose Monitor 16: Date: 05/28/23 Time: 00:37 PTT Result:: 84.7 Infusion Rate:: HEPARIN 1700 UNITS/HR Dose Monitor 17: Date: 05/28/23 Time: 06:46 PTT Result:: 59.5 Infusion Rate:: HEPARIN 1700 UNITS/HR Dose Monitor 18: Date: 05/28/23 Time: 18:06 PTT Result:: 94.8 Infusion Rate:: HEPARIN 1500 UNITS/HR Dose Monitor 19: Date: 05/29/23 Time: 01:12 PTT Result:: 84.0 Infusion Rate:: HEPARIN 1400 UNITS/HR Dose Monitor 20: Date: 05/29/23 Time: 08:14 PTT Result:: 80.5 Infusion Rate:: HEPARIN 1200 UNITS/HR Dose Monitor 21: Date: 05/29/23 Time: 13:10 PTT Result:: 63.9 Infusion Rate:: HEPARIN 1200 UNITS/HR Dose Monitor 22: Date: 05/29/23 Time: 21:15 PTT Result:: 55.5 Infusion Rate:: HEPARIN 1200 UNIT/HR Dose Monitor 23: Date: 05/30/23 Time: 06:03 PTT Result:: 69.3 Infusion Rate:: HEPARIN
--- NOTE | 2023-05-23 16:58 | EXP.CARD.CON ---
History of Present Illness History of Present Illness Consult date: 05/23/23 Requesting physician: Sam Cope Consult reason: hypertension Chief complaint: CVA. LV thrombus Additional Medical History:: 1. Hypertension, treated for about 2 to 3 years 2. Tobacco use since age 8 up to 2 packs/day, discontinued 2 months ago 3. Acute left MCA CVA, 05/21/2023 felt secondary to LV thrombus on echo A. Right upper and lower extremity weakness 4. Anterior CA by EKG with confirmation of wall motion abnormality on echocardiogram, 05/23/2023 5. LV thrombus on echocardiogram 05/23/2023 History of present illness: 43-year-old male with history of hypertension, who recently moved here to [facility], not established with a primary care, on antihypertensive medication was brought to the emergency room by his as he started experiencing uncoordinated sudden onset movements of his right upper and lower extremity. He said he felt extremely fatigued and tired and was having some dizziness for the last 2 days. He said he ran out of his antihypertensive medications including carvedilol and chlorthalidone probably was running high blood pressure because of this reason. Today while he was at his workplace start experiencing significant uncoordinated movement of his right upper and lower extremity. Then he felt that his legs and arms were significantly weak only on the right side. He had to drag his foot to walk. This made him come to the ER. In the ER stroke protocol was initiated. His initial vitals show that his blood pressure was significantly elevated in the 190s systolic. He was pretty much alert awake oriented x3 and able to give a history. He did not experience any slurred speech or facial droop. His CT scan of head without contrast was unremarkable. His CTA of head and neck showed beading appearance of the left cerebral artery and significant left M1 stenosis and severe stenosis of posterior inferior branch of left MCA. Given his delayed presentation he was not deemed a tPA candidate. He was diagnosed with acute left MCA territory CVA and being admitted for further management. When I saw him in the room patient was able to narrate his history without any difficulty. His is at bedside who agreed to the history. He states his right-sided weakness is unchanged since it started. No other new neurological deficits reported. He has difficulty walking and lifting things with his right hand. His vision is unaffected. He denies any chest pain, shortness of breath, abdominal pain, nausea vomiting, joint pains or skin rashes He is a three-quarter pack smoker for over 20 years. Denies excessive alcohol abuse or illicit drug use. Review of systems negative except for what is mentioned above. The above per Dr. Phoenix, Hospitalist 43-year-old white male presented to the ER with 6-hour history of right side weakness in upper and lower extremities. ER work-up revealed left MCA distribution CVA that was beyond the interval for acute intervention. Echo on 05/23/2023 shows EF about 50% with anterior hypokinesis and LV thrombus. EKG on 05/21/2023 is sinus with evidence of anterior CA. Pt denies any history of CAD or recent chest pain, SOA or chest tightness. Results of echo discussed with patient with recommendation for LHC, carotid angiogram and renal angiogram in AM. [facility] Disclaimer: The information contained in this section may have been updated after the patient was seen, as this information can be updated by other users. Medical History Hypertension Family History Mother Lung cancer Father Family history of myocardial infarction Social History Smoking Status: Current every day smoker alcohol intake: never current occupational status: other Travel in the last 8 weeks: None
[2023-05-23 17:12] LABS: C-Reactive Protein 20.1 mg/L (0-4)
[2023-05-23 17:29] LABS: PTT Heparin (inpatient only) 29.2 Seconds (23.6-34.0)
[2023-05-23 19:55] VITALS: BP 175/113; PULSE 98; RESP 16; TEMP 36.6; O2SAT 97
--- NOTE | 2023-05-23 19:57 | PC.NURSE ---
Heparin drip started at 1929, with [employer] RN. PTT put in for 2329.
[2023-05-23 21:00] VITALS: PULSE 60
[2023-05-23 21:48] LABS: Erythrocyte Sedimentation Rate 16 mm/hr (0-15)
[2023-05-24] VITALS (22 sets, daily range): BP systolic 133–198; BP diastolic 68–112; PULSE 57–90; RESP 16–21; TEMP 36.4–37.1; O2SAT 95–100; BMI 33.1
--- NOTE | 2023-05-24 04:11 | PC.NURSE ---
Patient has rested some tonight. Heparin drip still on. No issues stated by patient or family
[2023-05-24 04:24] LABS: Basophils % 0.5 % (0.1-2.0); Eosinophils # 0.3 K/mm3 (0.0-0.4); Hematocrit 43.7 % (42.0-52.0); Hemoglobin 14.5 g/dL (14.1-18.0); Lymphocytes # 3.2 K/mm3 (0.7-4.5); Lymphocytes % 40.4 % (10-50); Mean Corpuscular Hemoglobin 27.9 pg (27.0-31.2); Mean Corpuscular Volume 84.5 fl (80-94); Monocytes # 0.5 K/mm3 (0.1-1.0); Monocytes % 6.3 % (1.7-9.3); Neutrophils # 3.8 K/mm3 (1.8-7.8); Neutrophils % 48.7 % (37.0-80.0); Platelet Count 144 K/mm3 (142-424); Red Blood Count 5.18 M/mm3 (4.60-6.20); Red Cell Distribution Width 14.5 % (11.5-17.5); White Blood Count 7.8 K/mm3 (4.8-10.8)
[2023-05-24 04:27] LABS: Chloride 104 mmol/L (98-107); Potassium 3.2 mmoL/L (3.5-5.1); Sodium 138 mmol/L (136-145)
[2023-05-24 04:29] LABS: Blood Urea Nitrogen 14 mg/dl (9-20); Creatinine Clearance Estimated 141 mL/min (50-200); Estimated Glomerular Filt Rate 82 ml/min (>60); GFR (African American) 99 ML/MIN (>60)
[2023-05-24 04:30] LABS: Anion Gap 8.2 mEq/L (5-15); Calcium 8.6 mg/dl (8.4-10.2); Carbon Dioxide 29 mmol/L (22.0-30.0); Glucose 111 mg/dl (74-100)
[2023-05-24 04:32] LABS: PTT Heparin (inpatient only) 68.6 Seconds (23.6-34.0)
--- NOTE | 2023-05-24 04:55 | PC.NURSE ---
PTT called to Mala Ochoa. No change in Heparin drip
--- NOTE | 2023-05-24 06:46 | IR_ITS ---
APPROVED REPORT Patient Location: Inpatient PROCEDURES Selective coronary angiogram Intravascular lithotripsy to the proximal LAD Intravascular lithotripsy to the mid LAD Drug-eluting stent deployment to the proximal mid and distal LAD in a contiguous manner Drug-eluting stent deployment to the distal left main artery extending into the proximal LAD with noncontiguous stenting in the LAD Intravascular ultrasound to the LAD and left main artery Attempted angioplasty of a chronically occluded dominant right coronary artery Bilateral selective renal angiography INDICATION Acute anterior myocardial infarction, 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 COMPLICATIONS None Estimated Blood Loss: Less than 10 mls TECHNIQUE One percent lidocaine was used to anesthetize the right groin. The right femoral artery was accessed via the Seldinger technique. A 4-Ukrainian sheath was placed in the right femoral artery. A JL 4 and a JR4 catheter were used to perform selective coronary angiography as well as bilateral selective renal angiography. At the end of the procedure I broke scrub and contacted cardiothoracic surgery [facility]. I spoke with Dr. Chanel regarding the patient's anatomy and recent anterior myocardial infarction accompanied by an LV thrombus and acute embolic MCA stroke. After lengthy discussion Dr. Chanel both concluded patient was not a candidate for bypass surgery and it was recommended to proceed with percutaneous intervention which I was in complete agreement. At the end the diagnostic angiogram therapeutic heparin was administered giving a therapeutic ACT and an EBU 3.75 guide catheter was placed in left main artery followed by Choice PT extra-support wire going through the chronically occluded LAD. A 2.5 mm balloon was used to predilate the mid LAD subtotal occlusion. An intravascular lithotripsy 3 mm x 12 mm shockwave balloon was deployed for a total of 80 pulsations at 4, 6 and 8 barbra. A 2.5 x 38 mm Nav frontier stent was initially deployed at 12 barbra reducing the stenosis to 0%. An additional 2.25 x 22 mm Nav frontier stent was placed distal to the first stent yet still overlapping it and deployed at 16 barbra. An additional 2 mm x 12 mm Nav frontier stent was placed distal to the stent yet still overlapping and deployed at 12 barbra. The balloon was brought back and deployed at 20 barbra to mesh the stents. An additional 2 mm x 12 mm frontier stent was then placed distal to the last stent that was placed yet still overlapping and deployed at 12 barbra. The balloon was brought back and deployed at 16 and 18 barbra to mesh the stents. 800 mcg of intracoronary nitroglycerin was administered. Following this a 3 mm x 38 mm Nav frontier stent was placed proximal to the first 2.5 mm stent yet still overlapping it and deployed at 20 barbra. An additional 4 mm x 12 mm Nav frontier stent was placed proximal to the 3.5 mm stent yet still overlapping it and deployed at 20 barbra. The balloon was advanced and deployed at 20 and then 24 barbra which failed to reduce the mid LAD stenosis. At this point a 4 mm x 12 mm intravascular lithotripsy shockwave balloon was deployed for a total of 80 pulsations at 4, 6 and 10 barbra. Following this a 4 mm x 12 mm noncompliant balloon was deployed at 24 barbra in the mid LAD to further reduce the stenosis. The balloon was also brought back into the proximal segment and deployed at 24 barbra. Following this a 5 mm x 15 mm Nav frontier stent was placed in the distal left main artery stenting the prox
--- NOTE | 2023-05-24 09:10 | CT_ITS ---
FINAL REPORT TECHNIQUE: Thin section axial images were obtained from skull base to vertex without contrast. Coronal reconstruction images were obtained from the axial data. Exam was performed using dose reduction technique. CLINICAL HISTORY: Worsening hemiparesis COMPARISON: 05/21/2023 FINDINGS: There is no mass effect or midline shift. There is no hydrocephalus. There is no intracranial hemorrhage. The posterior fossa is without acute abnormality. The basilar cisterns are preserved. There is a hypodense focus in the posterior left basal ganglia that corresponds with edema on the recent MRI of 05/21. There are no new areas of decreased density intracranially. The soft tissues are without acute abnormality. No acute osseous abnormality is identified. IMPRESSION: No evidence of hemorrhage is identified. No new mass or midline shift is seen. Evolving left basal ganglia infarct. Reviewed, Interpreted and Dictated by Susanne Daugherty MD Transcribed by Malissa Lopez Authenticated and . [facility]
--- NOTE | 2023-05-24 09:30 | PC.NURSE ---
Patient being transferred down for head CT at this time via wheelchair at this time.
--- NOTE | 2023-05-24 09:31 | EXP.CARD.PN ---
Subjective Subjective Date: 05/24/23 Time: 09:31 Principal diagnosis: CVA, LV thrombus and recent [place] Interval history: 43-year-old white male in bed in no acute distress. Denies any chest pain overnight but feels that his right side is getting weaker. Patient was examined by physical therapy this morning with assessment being that his right side is the same or possibly a little stronger. He is still able to ambulate with assistance. Discussed with Dr. Benedict. We will discontinue heparin and obtain stat CT of the head to rule out hemorrhagic CVA conversion. If CT of the head is negative then we will proceed with left heart catheterization, renal angiogram and possibly carotid angiogram. Exam Data for Last 24 hours Vital signs and Labs for Last 24 Hours: Temp Pulse Resp BP Pulse Ox O2 Del Method 97.6 F 69 16 167/93 H 99 Room Air 05/24/23 07:29 05/24/23 07:29 05/24/23 07:29 05/24/23 07:29 05/24/23 07:29 05/24/23 07:29 Laboratory Results - last 24 hr 05/23/23 05:57: Troponin I 0.10 H, C-Reactive Protein 20.1 H 05/23/23 13:44: Urine Opiates Screen Negative, Urine Methadone Screen Negative, Ur Barbituates Screen Negative, Ur Phencyclidine Scrn Negative, Ur Amphetamines Screen Negative, U Benzodiazepines Scrn Negative, Urine Cocaine Screen Negative, U Marijuana (THC) Screen Negative 05/23/23 16:45: APTT 29.2 05/23/23 20:25: ESR 16 H 05/23/23 23:15: APTT 88.0 H* 05/24/23 04:13: WBC 7.8, RBC 5.18, Hgb 14.5, Hct 43.7, MCV 84.5, MCH 27.9, MCHC 33.0, RDW 14.5, Plt Count 144, MPV 9.0, Neut % (Auto) 48.7, Lymph % (Auto) 40.4, [place] % (Auto) 6.3, Eos % (Auto) 4.0, Baso % (Auto) 0.5, Neut # (Auto) 3.8, Lymph # (Auto) 3.2, [place] # (Auto) 0.5, Eos # (Auto) 0.3, Baso # (Auto) 0.0, APTT 68.6 H*, Sodium 138, Potassium 3.2 L, Chloride 104, Carbon Dioxide 29, Anion Gap 8.2, BUN 14, Creatinine 1.00, Estimated Creat Clear 141, Estimated GFR 82, Est GFR ( Amer) 99, Glucose 111 H, Calcium 8.6 I & O for Last 24 hours: Intake & Output 05/21/23 05/22/23 05/23/23 05/24/23 11:59 11:59 11:59 11:59 Intake Total 0 / 0 840 / 1080 480 / 480 Output Total 650 / 650 850 / 850 1000 / 1000 Balance -650 / -650 -10 / 230 -520 / -520 Weight 231 lb 9 oz 231 lb 9 oz 231 lb 7.766 oz Constitutional Constitutional: no acute distress *Routine Respiratory Exam Respiratory: Present CTA bilaterally *Routine Cardiovascular Exam Cardiovascular: Present RRR *Routine Neurological Exam Comments: Right-sided hemiparesis Progress Note: A&P Assessment and plan (1) Acute CVA (cerebrovascular accident): Status: Acute (2) Hypertensive emergency: Status: Acute (3) Nicotine dependence: Status: Acute (4) Myocardial infarction of anterior wall: Status: Acute (5) Noncompliance with medication regimen: Status: Acute (6) LV (left ventricular) mural thrombus following OK: Status: Acute Assessment and Plan Assessment and Plan for All Diagnoses:: 1. CVA, acute, Left MCA with R sided weakness felt secondary to LV thrombus Stop heparin and get CT of head without contrast due to pt feeling weakness is worse. Carotid angiogram today if CT of head negative 2. Anterior [place] with abnormal Echo (anterior WMA and LV thrombus) with EF 40-45% continue coreg and irbesartan Continue atorvastatin, LDL 117, HDL, 24, TG 291, Chol [address] of head negative 3. HTN Renal angiogram today if CT of head negative Continue carvedilol and irbesartan 4. Nicotine dependence with recent cessation 5. Possible vasculitis ESR 16 CRP 20.1 6. Hypokalemia, will replace
[2023-05-24 10:26] LABS: PTT Heparin (inpatient only) 64.5 Seconds (23.6-34.0)
[2023-05-24 14:41] LABS: CATHL Activated Clotting Time > 400 SEC (74-125)
[2023-05-24 14:43] LABS: CATHL Activated Clotting Time 389 SEC (74-125)
--- NOTE | 2023-05-24 16:00 | EXP.PN ---
Subjective *Date: 05/24/23 *Time: 16:00 Interval history: No acute events overnight increased strength in right arm and right leg Exam Data for Last 24 hours Vital signs and Labs for Last 24 Hours: Temp Pulse Resp BP Pulse Ox O2 Del Method 97.6 F 64 18 140/98 H 98 Room Air 05/24/23 07:29 05/24/23 13:50 05/24/23 13:50 05/24/23 13:50 05/24/23 13:50 05/24/23 13:50 Laboratory Results - last 24 hr 05/23/23 05:57: Troponin I 0.10 H, C-Reactive Protein 20.1 H 05/23/23 16:45: APTT 29.2 05/23/23 20:25: ESR 16 H 05/23/23 23:15: APTT 88.0 H* 05/24/23 04:13: WBC 7.8, RBC 5.18, Hgb 14.5, Hct 43.7, MCV 84.5, MCH 27.9, MCHC 33.0, RDW 14.5, Plt Count 144, MPV 9.0, Neut % (Auto) 48.7, Lymph % (Auto) 40.4, [place] % (Auto) 6.3, Eos % (Auto) 4.0, Baso % (Auto) 0.5, Neut # (Auto) 3.8, Lymph # (Auto) 3.2, [place] # (Auto) 0.5, Eos # (Auto) 0.3, Baso # (Auto) 0.0, APTT 68.6 H*, Sodium 138, Potassium 3.2 L, Chloride 104, Carbon Dioxide 29, Anion Gap 8.2, BUN 14, Creatinine 1.00, Estimated Creat Clear 141, Estimated GFR 82, Est GFR ( Amer) 99, Glucose 111 H, Calcium 8.6 05/24/23 10:00: APTT 64.5 H* 05/24/23 10:52: Activated Clotting Time 389 H* 05/24/23 11:24: Activated Clotting Time > 400 H* I & O for Last 24 hours: Intake & Output 05/21/23 05/22/23 05/23/23 05/24/23 23:59 23:59 23:59 23:59 Intake Total 840 / 840 480 / 480 0 / 0 Output Total 650 / 650 0 / 0 1750 / 1750 100 / 100 Balance -650 / -650 840 / 840 -1270 / -1270 -100 / -100 Weight 101.803 kg 105.035 kg 105 kg 105 kg Constitutional Constitutional: no acute distress *Routine HEENT Exam Head: Present normocephalic Eye: Present EOMI and PERRL ENT: Present mucous membranes moist *Routine Neck Exam Neck: Present supple; Absent lymphadenopathy *Routine Respiratory Exam Respiratory: Present CTA bilaterally *Routine Cardiovascular Exam Cardiovascular: Present RRR *Routine Abdominal Exam Abdominal: Present soft and normoactive bowel sounds; Absent tenderness *Routine Extremities Exam Extremities: Absent cyanosis, clubbing or edema *Routine Skin Exam Skin: Present warm; Absent rash *Routine Neurological Exam Neurological: Present alert, oriented X3 and CN II-XII intact Comments: sensation to light touch is symmetric strength in RUE is 4 to 5/5, strength in RLE is 4 to 5/5 finger to nose with RUE is poor Assessment and Plan *Assessment and plan (1) Acute CVA (cerebrovascular accident): Status: Acute Category: Medical Code(s): I63.9 - Cerebral infarction, unspecified (2) Hypertensive emergency: Status: Acute Category: Medical Code(s): I16.1 - Hypertensive emergency (3) Hypokalemia: Status: Acute Category: Medical Code(s): E87.6 - Hypokalemia (4) Noncompliance with medication regimen: Status: Acute Category: Medical Code(s): Z91.148 - Patient's other noncompliance with medication regimen for other reason (5) Nicotine dependence: Status: Acute Qualifiers: Nicotine product type: cigarettes Substance use status: unspecified nicotine-induced disorder Qualified Code(s): F17.219 - Nicotine dependence, cigarettes, with unspecified nicotine-induced disorders Category: Medical Code(s): F17.200 - Nicotine dependence, unspecified, uncomplicated Plan Mr. Miramontes is a 43 year old male with a past medical history of hypertension, cigarette nicotine dependence (>10 pack year history), who recently moved from [place] and hasn't established care with a PCP, who presented with weakness and involuntary movements of the right upper and lower extremities. He was admitted on 05/21 acute CVA of the left MCA territory. TPA could not be administered due to his late presentation. hospital course was complicated by discovery of apical thrombus on echocardiogram. #apical thrombus, 1.5cm -heparin drip per cardiology. C, carotid angiogram and renal angiogram today #ac
--- NOTE | 2023-05-24 18:00 | PC.NURSE ---
Contacted Dr. Cope concerning pts BP. Hospitalist rufinoed to contact cardiology for further instruction.
[2023-05-24 18:53] LABS: PTT Heparin (inpatient only) 27.6 Seconds (23.6-34.0)
[2023-05-25] VITALS (10 sets, daily range): BP systolic 115–159; BP diastolic 67–99; PULSE 59–87; RESP 22–32; TEMP 36.4–36.7; O2SAT 97–99; BMI 32.5
--- NOTE | 2023-05-25 01:20 | ECG_ITS ---
APPROVED REPORT Exam: Resting ECG HR:71 bpm ECG Measurements Heart Rate 71 AXES ND 172 P 62 QRSd 126 QRS 95 QT 476 T -49 QTc 498 Conclusion SINUS RHYTHM POSSIBLE LEFT ATRIAL ENLARGEMENT [-0.1mV P-WAVE IN V1/V2] INDETERMINATE AXIS ANTEROLATERAL MYOCARDIAL INFARCTION , PROBABLY RECENT with development of inferior infarct changes since last tracing ACUTE FL UNCONFIRMED REPORT Electronically signed by : Robbin Scott MD 05/25/2023 21:18:16
--- NOTE | 2023-05-25 01:28 | PC.NURSE ---
Spoke to Dr. Benedict concerning change in rhythm. Pt had 18 beat run of SVT with a narrowing pulse pressure. BP currently 131/107. Obtained an EKG and sent to him. No new orders at this time. No acute distress noted and will continue to monitor.
[2023-05-25 03:19] LABS: PTT Heparin (inpatient only) 80.4 Seconds (23.6-34.0)
[2023-05-25 05:46] LABS: Basophils # 0.1 K/mm3 (0-0.2); Basophils % 0.7 % (0.1-2.0); Eosinophils # 0.3 K/mm3 (0.0-0.4); Eosinophils % 3.6 % (0.1-12.0); Hematocrit 48.5 % (42.0-52.0); Hemoglobin 15.9 g/dL (14.1-18.0); Lymphocytes # 2.7 K/mm3 (0.7-4.5); Lymphocytes % 28.6 % (10-50); Mean Corpuscular HGB Conc 32.8 g/dL (31.8-35.4); Mean Corpuscular Hemoglobin 27.6 pg (27.0-31.2); Mean Corpuscular Volume 84.2 fl (80-94); Mean Platelet Volume 8.9 fl (7.4-10.4); Monocytes # 0.5 K/mm3 (0.1-1.0); Monocytes % 5.5 % (1.7-9.3); Neutrophils # 5.8 K/mm3 (1.8-7.8); Neutrophils % 61.6 % (37.0-80.0); Platelet Count 173 K/mm3 (142-424); Red Blood Count 5.76 M/mm3 (4.60-6.20); Red Cell Distribution Width 14.6 % (11.5-17.5); White Blood Count 9.4 K/mm3 (4.8-10.8)
[2023-05-25 05:56] LABS: Anion Gap 11.4 mEq/L (5-15); Blood Urea Nitrogen 12 mg/dl (9-20); Calcium 9.3 mg/dl (8.4-10.2); Carbon Dioxide 25 mmol/L (22.0-30.0); Chloride 104 mmol/L (98-107); Creatinine Clearance Estimated 154 mL/min (50-200); Estimated Glomerular Filt Rate 92 ml/min (>60); GFR (African American) 111 ML/MIN (>60); Glucose 126 mg/dl (74-100); Potassium 3.4 mmoL/L (3.5-5.1); Sodium 137 mmol/L (136-145)
--- NOTE | 2023-05-25 09:03 | EXP.CARD.PN ---
Subjective Subjective Date: 05/25/23 Time: 09:04 Principal diagnosis: CVA, LV thrombus and recent [place] Interval history: 43-year-old white male in bed in no acute distress. Right arm and leg seem to be improving in strength and mobility. Results of cardiac catheterization discussed with both the patient and his significant other. Exam Data for Last 24 hours Vital signs and Labs for Last 24 Hours: Temp Pulse Resp BP Pulse Ox O2 Del Method FiO2 97.6 F 69 32 H 131/84 97 Room Air 99 05/25/23 07:44 05/25/23 08:00 05/25/23 08:00 05/25/23 08:00 05/25/23 08:00 05/25/23 08:00 05/25/23 00:00 Laboratory Results - last 24 hr 05/24/23 10:00: APTT 64.5 H* 05/24/23 10:52: Activated Clotting Time 389 H* 05/24/23 11:24: Activated Clotting Time > 400 H* 05/24/23 18:20: APTT 27.6 05/25/23 02:45: APTT 80.4 H* 05/25/23 05:40: WBC 9.4, RBC 5.76, Hgb 15.9, Hct 48.5, MCV 84.2, MCH 27.6, MCHC 32.8, RDW 14.6, Plt Count 173, MPV 8.9, Neut % (Auto) 61.6, Lymph % (Auto) 28.6, [place] % (Auto) 5.5, Eos % (Auto) 3.6, Baso % (Auto) 0.7, Neut # (Auto) 5.8, Lymph # (Auto) 2.7, [place] # (Auto) 0.5, Eos # (Auto) 0.3, Baso # (Auto) 0.1, Sodium 137, Potassium 3.4 L, Chloride 104, Carbon Dioxide 25, Anion Gap 11.4, BUN 12, Creatinine 0.90, Estimated Creat Clear 154, Estimated GFR 92, Est GFR ( Amer) 111, Glucose 126 H, Calcium 9.3 I & O for Last 24 hours: Intake & Output 05/22/23 05/23/23 05/24/23 05/25/23 11:59 11:59 11:59 11:59 Intake Total 0 / 0 840 / 1080 480 / 480 1767.8 / 1767.8 Output Total 650 / 650 850 / 850 1000 / 1000 1000 / 1000 Balance -650 / -650 -10 / 230 -520 / -520 767.8 / 767.8 Weight 231 lb 9 oz 231 lb 9 oz 231 lb 7.766 oz 227 lb 3 oz Constitutional Constitutional: no acute distress *Routine Respiratory Exam Respiratory: Present CTA bilaterally *Routine Cardiovascular Exam Cardiovascular: Present RRR *Routine Extremities Exam Comments: Right side hemiparesis noted Progress Note: A&P Assessment and plan (1) Acute CVA (cerebrovascular accident): Status: Acute (2) Hypertensive emergency: Status: Acute (3) Hypokalemia: Status: Acute (4) Noncompliance with medication regimen: Status: Acute (5) Nicotine dependence: Status: Acute (6) LV (left ventricular) mural thrombus following [place]: Status: Acute Assessment and Plan Assessment and Plan for All Diagnoses:: 1. CVA, acute, Left MCA with R sided weakness felt secondary to LV thrombus CT of head yesterday negative for acute bleed Heparin resumed, will also start Coumadin therapy per pharmacy management with goal INR of 2.5-3.0 Defer management to hospitalist Carotid angiogram not performed 2. Anterior TN with abnormal Echo (anterior WMA and LV thrombus) with EF 40-45% with apical, distal septal and inferior gibson akinetic continue coreg and start Entresto today Continue atorvastatin, LDL 117, HDL, 24, TG 291, Chol 199 6 CELENA to LAD and 1 CELENA to left main/LAD, 05/24/2023, unable to open proximal RCA occlusion but left to right collaterals noted. Circumflex is nondominant with mild proximal CAD 3. HTN Renal angiogram negative for GERALD Continue carvedilol and Entresto 4. Nicotine dependence with recent cessation 5. Possible vasculitis ESR 16 CRP 20.1 6. Hypokalemia, improving will replace Continue IV heparin until Coumadin therapeutic Recommend cardiac rehab
--- NOTE | 2023-05-25 10:22 | DIET.NUTRFU ---
Met with patient this morning and provided education on cardiac diet and vitamin K/Coumadin interactions. Pt reported experiencing heartburn during stay with no related medications currently being provided. Will notify .
--- NOTE | 2023-05-25 11:00 | PC.NURSE ---
notified MD that pt cannot tolerate IV potassium, pt moaning and extremely uncomfortable, MD stated to give PO dose a little later
--- NOTE | 2023-05-25 11:38 | PC.NURSE ---
courtesy tech koffi: pt is sitting up in bed with call light at BS. no requests voiced at this time.
[2023-05-25 13:31] LABS: PTT Heparin (inpatient only) 74.4 Seconds (23.6-34.0)
--- NOTE | 2023-05-25 15:18 | PC.NURSE ---
0800-bp 131/84, stopped nitro drip at this time
--- NOTE | 2023-05-25 16:07 | PC.NURSE ---
courtesy tech round: pt is sitting up in chair. pt requests for lights to stay off for personal preference. no more needs are voiced at this time. call light is at BS
--- NOTE | 2023-05-25 18:02 | EXP.PN ---
Subjective *Date: 05/25/23 *Time: 18:02 Interval history: No acute events overnight He feels like his right side is stronger but continues to have trouble with fine movements. Exam Data for Last 24 hours Vital signs and Labs for Last 24 Hours: Temp Pulse Resp BP Pulse Ox O2 Del Method FiO2 98.0 F 60 32 H 131/84 99 Room Air 99 05/25/23 14:59 05/25/23 16:00 05/25/23 08:00 05/25/23 08:00 05/25/23 08:00 05/25/23 16:39 05/25/23 00:00 Laboratory Results - last 24 hr 05/24/23 18:20: APTT 27.6 05/25/23 02:45: APTT 80.4 H* 05/25/23 05:40: WBC 9.4, RBC 5.76, Hgb 15.9, Hct 48.5, MCV 84.2, MCH 27.6, MCHC 32.8, RDW 14.6, Plt Count 173, MPV 8.9, Neut % (Auto) 61.6, Lymph % (Auto) 28.6, [place] % (Auto) 5.5, Eos % (Auto) 3.6, Baso % (Auto) 0.7, Neut # (Auto) 5.8, Lymph # (Auto) 2.7, [place] # (Auto) 0.5, Eos # (Auto) 0.3, Baso # (Auto) 0.1, Sodium 137, Potassium 3.4 L, Chloride 104, Carbon Dioxide 25, Anion Gap 11.4, BUN 12, Creatinine 0.90, Estimated Creat Clear 154, Estimated GFR 92, Est GFR ( Amer) 111, Glucose 126 H, Calcium 9.3 05/25/23 08:22: APTT 78.0 H* 05/25/23 12:56: APTT 74.4 H* I & O for Last 24 hours: Intake & Output 05/22/23 05/23/23 05/24/23 05/25/23 23:59 23:59 23:59 23:59 Intake Total 840 / 840 480 / 480 248.0 / 248.0 2299.8 / 2299.8 Output Total 0 / 0 1750 / 1750 450 / 450 2950 / 2950 Balance 840 / 840 -1270 / -1270 -202.0 / -202.0 -650.2 / -650.2 Weight 105.035 kg 105 kg 105 kg 103.051 kg Constitutional Constitutional: no acute distress *Routine HEENT Exam Head: Present normocephalic Eye: Present EOMI and PERRL ENT: Present mucous membranes moist *Routine Neck Exam Neck: Present supple; Absent lymphadenopathy *Routine Respiratory Exam Respiratory: Present CTA bilaterally *Routine Cardiovascular Exam Cardiovascular: Present RRR *Routine Abdominal Exam Abdominal: Present soft and normoactive bowel sounds; Absent tenderness *Routine Extremities Exam Extremities: Absent cyanosis, clubbing or edema *Routine Skin Exam Skin: Present warm; Absent rash *Routine Neurological Exam Neurological: Present alert, oriented X3 and CN II-XII intact Assessment and Plan *Assessment and plan (1) Acute CVA (cerebrovascular accident): Status: Acute Category: Medical Code(s): I63.9 - Cerebral infarction, unspecified (2) Hypertensive emergency: Status: Acute Category: Medical Code(s): I16.1 - Hypertensive emergency (3) Hypokalemia: Status: Acute Category: Medical Code(s): E87.6 - Hypokalemia (4) Noncompliance with medication regimen: Status: Acute Category: Medical Code(s): Z91.148 - Patient's other noncompliance with medication regimen for other reason (5) Nicotine dependence: Status: Acute Qualifiers: Nicotine product type: cigarettes Substance use status: unspecified nicotine-induced disorder Qualified Code(s): F17.219 - Nicotine dependence, cigarettes, with unspecified nicotine-induced disorders Category: Medical Code(s): F17.200 - Nicotine dependence, unspecified, uncomplicated Plan Mr. Miramontes is a 43 year old male with a past medical history of hypertension, cigarette nicotine dependence (>10 pack year history), who recently moved from [place] and hasn't established care with a PCP, who presented with weakness and involuntary movements of the right upper and lower extremities. He was admitted on 05/21 acute CVA of the left MCA territory. TPA could not be administered due to his late presentation. hospital course was complicated by discovery of apical thrombus on echocardiogram. #apical thrombus, 1.5cm -heparin drip and coumadin INR goal 2.5-3.0. He will need a LifeVest prior to discharge home. #Acute anterior STEMI -successful intravascular lithotripsy of a chronically subtotally occluded proximal and mid LAD with 6 contiguous drug-eluting stents extending from the proximal mid and dis
--- NOTE | 2023-05-25 18:29 | PC.NURSE ---
PT HAS BEEN WATCHING TV IN BED, NO NEEDS OR C/O NOTED THUS FAR. AT BEDSIDE. HEPARIN DRIP CONTINUES TO RUN. VSS.
[2023-05-25 21:23] LABS: PTT Heparin (inpatient only) 56.4 Seconds (23.6-34.0)
--- NOTE | 2023-05-25 22:35 | PC.NURSE ---
THIS RN CALLED THE [facility] FOR NEW ORDERS FOR PTT / HEPARIN GTT. PTT IS THERAPEUTIC SO NO NEW ORDERS FOR HEPARIN GTT. LEÓN FROM THE [facility] WANTED A NEW PTT ORDERED FOR 6 HOURS AFTER LAST DRAWN. THIS RN PLACED ORDER PER PHARMACY TELEPHONE ORDER.
[2023-05-26] VITALS (7 sets, daily range): BP systolic 110–134; BP diastolic 69–83; PULSE 68–90; RESP 18–22; TEMP 36.4–36.8; O2SAT 95–100; BMI 33.4
[2023-05-26 03:28] LABS: Basophils # 0.1 K/mm3 (0-0.2); Basophils % 0.7 % (0.1-2.0); Eosinophils # 0.5 K/mm3 (0.0-0.4); Eosinophils % 4.2 % (0.1-12.0); Hemoglobin 15.6 g/dL (14.1-18.0); Lymphocytes # 3.8 K/mm3 (0.7-4.5); Lymphocytes % 34.4 % (10-50); Mean Corpuscular HGB Conc 33.3 g/dL (31.8-35.4); Mean Corpuscular Hemoglobin 28.4 pg (27.0-31.2); Mean Corpuscular Volume 85.3 fl (80-94); Monocytes # 0.7 K/mm3 (0.1-1.0); Monocytes % 6.4 % (1.7-9.3); Neutrophils % 54.4 % (37.0-80.0); Platelet Count 177 K/mm3 (142-424); Red Blood Count 5.51 M/mm3 (4.60-6.20); Red Cell Distribution Width 14.5 % (11.5-17.5)
[2023-05-26 03:33] LABS: Anion Gap 12.8 mEq/L (5-15); Blood Urea Nitrogen 14 mg/dl (9-20); Calcium 9.3 mg/dl (8.4-10.2); Carbon Dioxide 25 mmol/L (22.0-30.0); Chloride 102 mmol/L (98-107); Creatinine Clearance Estimated 126 mL/min (50-200); Estimated Glomerular Filt Rate 73 ml/min (>60); GFR (African American) 88 ML/MIN (>60); Glucose 137 mg/dl (74-100); Magnesium 2.1 mg/dl (1.6-2.3); Potassium 3.8 mmoL/L (3.5-5.1); Sodium 136 mmol/L (136-145)
[2023-05-26 03:35] LABS: PTT Heparin (inpatient only) 67.9 Seconds (23.6-34.0)
[2023-05-26 03:40] LABS: INR 0.97 (0.9-1.1); Prothrombin Time 10.5 seconds (10.1-12.5)
--- NOTE | 2023-05-26 03:53 | PC.NURSE ---
@[id number] FROM [facility] CALLED THIS RN TO DISCUSS PT'S HEPARIN GTT. PTT IS 67.9 AND WITHIN THERAPEUTIC RANGE AND NO CHANGES TO GTT WERE MADE. AMEE FROM [facility] SAID SHE WOULD PUT IN NEW ORDERS FOR THE NEXT PTT.
[2023-05-26 09:29] LABS: PTT Heparin (inpatient only) 72.9 Seconds (23.6-34.0)
--- NOTE | 2023-05-26 09:37 | PC.NURSE ---
APTT RESULT CALLED TO PHARMACY. TOLD IT IS IN RANGE, RATE WILL STAY THE SAME.
[2023-05-26 15:29] LABS: PTT Heparin (inpatient only) 70.8 Seconds (23.6-34.0)
--- NOTE | 2023-05-26 15:39 | EXP.CARD.PN ---
Subjective Subjective Date: 05/26/23 Time: 15:39 Principal diagnosis: CVA, LV thrombus and recent [place] Interval history: 43-year-old white male in bedside chair no acute distress. Right side weakness continues to slowly improve. INR today was 0.9 He continues on IV heparin Exam Data for Last 24 hours Vital signs and Labs for Last 24 Hours: Temp Pulse Resp BP Pulse Ox O2 Del Method FiO2 98.1 F 70 20 110/75 99 Room Air 99 05/26/23 12:00 05/26/23 12:00 05/26/23 12:00 05/26/23 12:00 05/26/23 12:00 05/26/23 14:38 05/25/23 00:00 Laboratory Results - last 24 hr 05/25/23 20:45: APTT 56.4 H* 05/26/23 03:00: WBC 11.0 H, RBC 5.51, Hgb 15.6, Hct 47.0, MCV 85.3, MCH 28.4, MCHC 33.3, RDW 14.5, Plt Count 177, MPV 8.0, Neut % (Auto) 54.4, Lymph % (Auto) 34.4, [place] % (Auto) 6.4, Eos % (Auto) 4.2, Baso % (Auto) 0.7, Neut # (Auto) 6.0, Lymph # (Auto) 3.8, [place] # (Auto) 0.7, Eos # (Auto) 0.5 H, Baso # (Auto) 0.1, PT 10.5, INR 0.97, APTT 67.9 H*, Sodium 136, Potassium 3.8, Chloride 102, Carbon Dioxide 25, Anion Gap 12.8, BUN 14, Creatinine 1.10 D, Estimated Creat Clear 126, Estimated GFR 73, Est GFR ( Amer) 88 D, Glucose 137 H, Calcium 9.3, Magnesium 2.1 05/26/23 08:53: APTT 72.9 H* 05/26/23 14:57: APTT 70.8 H* I & O for Last 24 hours: Intake & Output 05/24/23 05/25/23 05/26/23 05/27/23 11:59 11:59 11:59 11:59 Intake Total 480 / 480 1767.8 / 1767.8 2463 / 2463 480 / 480 Output Total 1000 / 1000 1600 / 1600 2600 / 2600 720 / 720 Balance -520 / -520 167.8 / 167.8 -137 / -137 -240 / -240 Weight 231 lb 7.766 oz 227 lb 3.017 oz 233 lb 4.8 oz *Routine Respiratory Exam Respiratory: Present CTA bilaterally *Routine Cardiovascular Exam Cardiovascular: Present RRR; Absent murmur, gallop or rubs Progress Note: A&P Assessment and plan (1) Acute CVA (cerebrovascular accident): Status: Acute (2) Hypertensive emergency: Status: Acute (3) Hypokalemia: Status: Acute (4) Noncompliance with medication regimen: Status: Acute (5) Nicotine dependence: Status: Acute (6) LV (left ventricular) mural thrombus following [place]: Status: Acute Assessment and Plan Assessment and Plan for All Diagnoses:: 1. CVA, acute, Left MCA with R sided weakness felt secondary to LV thrombus CT of head yesterday negative for acute bleed Heparin resumed, will also start Coumadin therapy per pharmacy management with goal INR of 2.5-3.0 Defer management to hospitalist Carotid angiogram not performed Outpt referral to Neuro 2. Anterior SD with abnormal Echo (anterior WMA and LV thrombus) with EF 40-45% with apical, distal septal and inferior gibson akinetic continue coreg and Entresto Continue atorvastatin, LDL 117, HDL, 24, TG 291, Chol 199 6 CELENA to LAD and 1 CELENA to left main/LAD, 05/24/2023, unable to open prox RCA occlusion but Left to Right collaterals noted. Circumflex is nondominant with mild proximal CAD 3. HTN Renal angiogram negative for GERALD Continue carvedilol and Entresto 4. Nicotine dependence with recent cessation 5. Possible vasculitis ESR 16 CRP 20.1 6. Hypokalemia, improving will replace Continue IV heparin until Coumadin therapeutic Recommend cardiac rehab
--- NOTE | 2023-05-26 15:46 | PC.NURSE ---
NOTIFIED PHARMACY OF PTT-70.8. KEEPING RATE IS.
--- NOTE | 2023-05-26 18:38 | EXP.PN ---
Subjective *Date: 05/26/23 *Time: 22:40 Interval history: No acute events overnight Exam Data for Last 24 hours Vital signs and Labs for Last 24 Hours: Temp Pulse Resp BP Pulse Ox O2 Del Method FiO2 98.2 F 78 18 134/83 96 Room Air 99 05/26/23 16:00 05/26/23 16:00 05/26/23 16:00 05/26/23 16:00 05/26/23 16:00 05/26/23 16:43 05/25/23 00:00 Laboratory Results - last 24 hr 05/25/23 20:45: APTT 56.4 H* 05/26/23 03:00: WBC 11.0 H, RBC 5.51, Hgb 15.6, Hct 47.0, MCV 85.3, MCH 28.4, MCHC 33.3, RDW 14.5, Plt Count 177, MPV 8.0, Neut % (Auto) 54.4, Lymph % (Auto) 34.4, Nuckolls % (Auto) 6.4, Eos % (Auto) 4.2, Baso % (Auto) 0.7, Neut # (Auto) 6.0, Lymph # (Auto) 3.8, Nuckolls # (Auto) 0.7, Eos # (Auto) 0.5 H, Baso # (Auto) 0.1, PT 10.5, INR 0.97, APTT 67.9 H*, Sodium 136, Potassium 3.8, Chloride 102, Carbon Dioxide 25, Anion Gap 12.8, BUN 14, Creatinine 1.10 D, Estimated Creat Clear 126, Estimated GFR 73, Est GFR ( Amer) 88 D, Glucose 137 H, Calcium 9.3, Magnesium 2.1 05/26/23 08:53: APTT 72.9 H* 05/26/23 14:57: APTT 70.8 H* I & O for Last 24 hours: Intake & Output 05/23/23 05/24/23 05/25/23 05/26/23 23:59 23:59 23:59 23:59 Intake Total 480 / 480 248.0 / 248.0 2299.8 / 2299.8 2643 / 2643 Output Total 1750 / 1750 450 / 450 2950 / 2950 1620 / 1620 Balance -1270 / -1270 -202.0 / -202.0 -650.2 / -650.2 1023 / 1023 Weight 105 kg 105 kg 103.051 kg 105.823 kg Constitutional Constitutional: no acute distress *Routine HEENT Exam Head: Present normocephalic Eye: Present EOMI and PERRL ENT: Present mucous membranes moist *Routine Neck Exam Neck: Present supple; Absent lymphadenopathy *Routine Respiratory Exam Respiratory: Present CTA bilaterally *Routine Cardiovascular Exam Cardiovascular: Present RRR *Routine Abdominal Exam Abdominal: Present soft and normoactive bowel sounds; Absent tenderness *Routine Extremities Exam Extremities: Absent cyanosis, clubbing or edema *Routine Skin Exam Skin: Present warm; Absent rash *Routine Neurological Exam Neurological: Present alert, oriented X3 and CN II-XII intact Assessment and Plan *Assessment and plan (1) Acute CVA (cerebrovascular accident): Status: Acute Category: Medical Code(s): I63.9 - Cerebral infarction, unspecified (2) Hypertensive emergency: Status: Acute Category: Medical Code(s): I16.1 - Hypertensive emergency (3) Hypokalemia: Status: Acute Category: Medical Code(s): E87.6 - Hypokalemia (4) Noncompliance with medication regimen: Status: Acute Category: Medical Code(s): Z91.148 - Patient's other noncompliance with medication regimen for other reason (5) Nicotine dependence: Status: Acute Qualifiers: Nicotine product type: cigarettes Substance use status: unspecified nicotine-induced disorder Qualified Code(s): F17.219 - Nicotine dependence, cigarettes, with unspecified nicotine-induced disorders Category: Medical Code(s): F17.200 - Nicotine dependence, unspecified, uncomplicated Plan Mr. Miramontes is a 43 year old male with a past medical history of hypertension, cigarette nicotine dependence (>10 pack year history), who recently moved from [place] and hasn't established care with a PCP, who presented with weakness and involuntary movements of the right upper and lower extremities. He was admitted on 05/21 acute CVA of the left MCA territory. TPA could not be administered due to his late presentation. hospital course was complicated by discovery of apical thrombus on echocardiogram. #apical thrombus, 1.5cm -heparin drip and coumadin INR goal 2.5-3.0. #Acute anterior STEMI -successful intravascular lithotripsy of a chronically subtotally occluded proximal and mid LAD with 6 contiguous drug-eluting stents extending from the proximal mid and distal LAD. successful stenting of the distal left main artery extending to the proximal LAD. -aspirin,
--- NOTE | 2023-05-26 19:04 | PC.NURSE ---
A&OX4. TOLERATING RA WELL. AT BEDSIDE. PT HAS NOT HAD ANY NEEDS OR C/O NOTED THUS FAR THIS SHIFT. UP INDEPENDENTLY IN ROOM. HAS SHOWERED THIS MORNING. VSS.
[2023-05-26 21:31] LABS: PTT Heparin (inpatient only) 75.8 Seconds (23.6-34.0)
[2023-05-27] VITALS (8 sets, daily range): BP systolic 116–153; BP diastolic 64–85; PULSE 69–83; RESP 18–20; TEMP 36.4–37.1; O2SAT 96–99; BMI 32.4
[2023-05-27 06:25] LABS: PTT Heparin (inpatient only) 68.1 Seconds (23.6-34.0)
[2023-05-27 08:21] LABS: INR 1.11 (0.9-1.1); Prothrombin Time 11.9 seconds (10.1-12.5)
--- NOTE | 2023-05-27 10:13 | P.PN_ITS ---
Subjective Subjective Date: 05/27/23 Time: 10:13 Principal diagnosis: CVA, LV thrombus and recent [place] Interval history: 43-year-old white male in bed in no acute distress. Right arm and leg weakness continues to improve slightly. Patient is now ambulating in the good with a walker and assistance. INR today was 1.11 and is managed by the Coumadin clinic Exam Data for Last 24 hours Vital signs and Labs for Last 24 Hours: Temp Pulse Resp BP Pulse Ox O2 Del Method FiO2 97.7 F 83 18 128/81 99 Room Air 99 05/27/23 08:00 05/27/23 08:00 05/27/23 08:00 05/27/23 08:00 05/27/23 08:00 05/27/23 10:01 05/25/23 00:00 Laboratory Results - last 24 hr 05/26/23 14:57: APTT 70.8 H* 05/26/23 20:55: APTT 75.8 H* 05/27/23 06:05: PT 11.9, INR 1.11 H, APTT 68.1 H* I & O for Last 24 hours: Intake & Output 05/24/23 05/25/23 05/26/23 05/27/23 11:59 11:59 11:59 11:59 Intake Total 480 / 480 1767.8 / 1767.8 2463 / 2463 1320 / 1320 Output Total 1000 / 1000 1600 / 1600 2600 / 2600 4920 / 4920 Balance -520 / -520 167.8 / 167.8 -137 / -137 -3600 / -3600 Weight 231 lb 7.766 oz 227 lb 3.017 oz 233 lb 4.8 oz 226 lb 7 oz Constitutional Constitutional: no acute distress *Routine Respiratory Exam Respiratory: Present CTA bilaterally *Routine Cardiovascular Exam Cardiovascular: Present RRR Progress Note: A&P Assessment and plan (1) Acute CVA (cerebrovascular accident): Status: Acute (2) Hypertensive emergency: Status: Acute (3) Hypokalemia: Status: Acute (4) Noncompliance with medication regimen: Status: Acute (5) Nicotine dependence: Status: Acute (6) LV (left ventricular) mural thrombus following [place]: Status: Acute Assessment and Plan Assessment and Plan for All Diagnoses:: 1. CVA, acute, Left MCA with R sided weakness felt secondary to LV thrombus CT of head negative for acute bleed Heparin with Coumadin therapy per pharmacy management with goal INR of 2.5- 3.0 Defer management to hospitalist Carotid angiogram not performed Outpt referral to Neuro 2. 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 Circumflex is nondominant with mild proximal CAD 3. HTN Renal angiogram negative for GERALD Continue carvedilol and Entresto 4. Nicotine dependence with recent cessation 5. Possible vasculitis ESR 16 CRP 20.1 6. Hypokalemia, resolved Continue IV heparin until Coumadin therapeutic or he could be sent home with lovenox until INR is around 2.5. Home medication recommendations Aspirin 81 mg daily for a total of 30 days from the time of stenting then discontinue Plavix 75 mg daily Coumadin as directed by Coumadin clinic to get INR to around 2.5 Lovenox 1 mg/kg subcutaneously every 12 hours until INR therapeutic Entresto 49/51 mg twice daily Coreg 12.5 mg twice daily Atorvastatin 40 mg daily Follow-up in our office in 1 week Recommend cardiac rehab
--- NOTE | 2023-05-27 17:59 | EXP.PN ---
Subjective *Date: 05/27/23 *Time: 22:13 Interval history: No acute events overnight Exam Data for Last 24 hours Vital signs and Labs for Last 24 Hours: Temp Pulse Resp BP Pulse Ox O2 Del Method FiO2 98.7 F 80 18 119/64 98 Room Air 99 05/27/23 15:41 05/27/23 16:00 05/27/23 15:41 05/27/23 15:41 05/27/23 15:41 05/27/23 16:14 05/25/23 00:00 Laboratory Results - last 24 hr 05/26/23 20:55: APTT 75.8 H* 05/27/23 06:05: PT 11.9, INR 1.11 H, APTT 68.1 H* I & O for Last 24 hours: Intake & Output 05/24/23 05/25/23 05/26/23 05/27/23 23:59 23:59 23:59 23:59 Intake Total 248.0 / 248.0 2299.8 / 2299.8 2643 / 2643 1720 / 1720 Output Total 450 / 450 2950 / 2950 2120 / 4720 5450 / 5450 Balance -202.0 / -202.0 -650.2 / -650.2 523 / -2077 -3730 / -3730 Weight 105 kg 103.051 kg 105.823 kg 102.71 kg Constitutional Constitutional: no acute distress *Routine HEENT Exam Head: Present normocephalic Eye: Present EOMI and PERRL ENT: Present mucous membranes moist *Routine Neck Exam Neck: Present supple; Absent lymphadenopathy *Routine Respiratory Exam Respiratory: Present CTA bilaterally *Routine Cardiovascular Exam Cardiovascular: Present RRR *Routine Abdominal Exam Abdominal: Present soft and normoactive bowel sounds; Absent tenderness *Routine Extremities Exam Extremities: Absent cyanosis, clubbing or edema *Routine Skin Exam Skin: Present warm; Absent rash *Routine Neurological Exam Neurological: Present alert and oriented X3 Assessment and Plan *Assessment and plan (1) Acute CVA (cerebrovascular accident): Status: Acute Category: Medical Code(s): I63.9 - Cerebral infarction, unspecified (2) Hypertensive emergency: Status: Acute Category: Medical Code(s): I16.1 - Hypertensive emergency (3) Hypokalemia: Status: Acute Category: Medical Code(s): E87.6 - Hypokalemia (4) Noncompliance with medication regimen: Status: Acute Category: Medical Code(s): Z91.148 - Patient's other noncompliance with medication regimen for other reason (5) Nicotine dependence: Status: Acute Qualifiers: Nicotine product type: cigarettes Substance use status: unspecified nicotine-induced disorder Qualified Code(s): F17.219 - Nicotine dependence, cigarettes, with unspecified nicotine-induced disorders Category: Medical Code(s): F17.200 - Nicotine dependence, unspecified, uncomplicated Plan Mr. Miramontes is a 43 year old male with a past medical history of hypertension, cigarette nicotine dependence (>10 pack year history), who recently moved from [place] and hasn't established care with a PCP, who presented with weakness and involuntary movements of the right upper and lower extremities. He was admitted on 05/21 acute CVA of the left MCA territory. TPA could not be administered due to his late presentation. hospital course was complicated by discovery of apical thrombus on echocardiogram. #apical thrombus, 1.5cm -heparin drip and coumadin. INR goal 2.5-3.0. #Acute anterior STEMI -successful intravascular lithotripsy of a chronically subtotally occluded proximal and mid LAD with 6 contiguous drug-eluting stents extending from the proximal mid and distal LAD. successful stenting of the distal left main artery extending to the proximal LAD. -aspirin, Brilinta, high intensity statin and standard therapy for systolic heart therapy per cardiology. after 30 days aspirin will be discontinued. #acute CVA, left MCA territory -CTA head/neck with beading appearance of the left cerebral artery with stenosis of the left M1 and significant stenosis of the posterior/inferior branch of the left MCA -A1c is 5.5, LDL 117, total cholesterol 291, HDL 24 -brain mri: IMPRESSION: Acute infarct of the posterior left basal ganglia and left periventricular white matter. Likely chronic ischemic changes, more anteriorly in the left basal ganglia and an
[2023-05-27 18:29] LABS: PTT Heparin (inpatient only) 89.1 Seconds (23.6-34.0)
[2023-05-28] VITALS (9 sets, daily range): BP systolic 114–155; BP diastolic 72–96; PULSE 64–80; RESP 16–19; TEMP 36.4–37; O2SAT 94–97; BMI 32.3
[2023-05-28 01:10] LABS: PTT Heparin (inpatient only) 84.7 Seconds (23.6-34.0)
[2023-05-28 07:05] LABS: INR 1.56 (0.9-1.1); Prothrombin Time 16.4 seconds (10.1-12.5)
[2023-05-28 07:08] LABS: PTT Heparin (inpatient only) 59.5 Seconds (23.6-34.0)
--- NOTE | 2023-05-28 08:27 | PC.NURSE ---
New heparin bag hung. When scanned was documenting on old heparin drip order. Can not manually document as it says future scheduled. Bag and order verified with Marley Hernandez RN
--- NOTE | 2023-05-28 14:21 | PC.NURSE ---
courtesy tech note: pt is sitting up in bed watching tv with no requests voiced at this time.
--- NOTE | 2023-05-28 15:33 | EXP.ACUTE.PN ---
Subjective *Date: 05/28/23 *Time: 15:33 Interval history: Doing well No new complaint Right upper and lower extremity weakness slowly improving per patient Medical Exam Vital signs and Labs for Last 24 Hours: Vital Signs Temp Pulse Pulse Resp BP Pulse Ox O2 Del Method 05/28/23 13:05 Room Air 05/28/23 11:15 Room Air 05/28/23 09:40 Room Air 05/28/23 08:21 Room Air 05/28/23 11:21 97.6 F 72 17 114/72 97 Room Air 05/28/23 08:00 77 05/28/23 07:53 97.8 F 69 18 127/96 H 97 Room Air 05/28/23 07:00 Room Air 05/28/23 05:00 Room Air 05/28/23 04:00 70 05/28/23 04:00 97.8 F 64 19 133/86 97 05/28/23 00:00 70 05/28/23 03:00 Room Air 05/27/23 20:00 70 05/28/23 00:00 98.6 F 68 18 150/93 H 94 L Room Air 05/28/23 01:00 Room Air 05/27/23 23:00 Room Air 05/27/23 21:00 Room Air 05/27/23 20:00 Room Air 05/27/23 20:00 98.6 F 72 18 134/69 96 Room Air 05/27/23 18:02 Room Air 05/27/23 16:00 80 05/27/23 16:14 Room Air 05/27/23 15:41 98.7 F 76 18 119/64 98 Room Air Intake and Output 05/27/23 05/28/23 05/28/23 23:59 07:59 15:59 Intake Total 360 / 1720 240 / 600 360 / 600 Output Total 0 / 6350 900 / 1999 1100 / 1999 Balance 360 / -4630 -660 / -1400 -740 / -1400 Intake: Intake, Oral Amount 360 / 1440 240 / 600 360 / 600 Output: Output, Urine Amount 0 / 6350 / 1999 1100 1999 Other: Number of Unmeasured Voids 1 0 Number of Bowel Movements 1 Weight 102.285 kg Patient Weight 05/28/23 23:59 Weight 102.285 kg Laboratory Results - last 24 hr 05/27/23 17:50: APTT 89.1 H* 07/22/23 00:37: APTT 84.7 H* 05/28/23 06:46: PT 16.4 H, INR 1.56 H, APTT 59.5 H* I & O for Labs for Last 24 Hours: Intake & Output 05/25/23 05/26/23 05/27/23 05/28/23 23:59 23:59 23:59 23:59 Intake Total 2299.8 / 2299.8 2643 / 2643 1720 / 1720 600 / 600 Output Total 2950 / 2950 2120 / 4720 5450 / 6350 1999 Balance -650.2 / -650.2 523 / -2077 -3730 / -4630 -1400 / -1400 Weight 103.051 kg 105.823 kg 102.71 kg 102.285 kg Head: Present atraumatic and normocephalic Neck: Present normal inspection Respiratory: Present able to speak in complete sentences and symmetric chest movement Cardiac: Present Reg Rate and Rhythm GI: Present soft Extremities: Present normal inspection Comment:: Power on right upper extremity 4/5, bilateral lower extremity 4/5. Power on left upper and lower extremity 5/5. No facial droop. Assessment and Plan *Assessment and plan (1) LV (left ventricular) mural thrombus following [place]: Status: Acute Category: Medical Code(s): I23.6 - Thrombosis of atrium, auricular appendage, and ventricle as current complications following acute myocardial infarction (2) Myocardial infarction of anterior wall: Status: Acute Category: Medical Code(s): I21.09 - ST elevation (STEMI) myocardial infarction involving other coronary artery of anterior wall (3) Acute CVA (cerebrovascular accident): Status: Acute Category: Medical Code(s): I63.9 - Cerebral infarction, unspecified Plan Mr. Miramontes is a 43 year old male with a past medical history of hypertension, cigarette nicotine dependence (>10 pack year history), who recently moved from [place] and hasn't established care with a PCP, who presented with weakness and involuntary movements of the right upper and lower extremities. He was admitted on 05/21 acute CVA of the left MCA territory. TPA could not be administered due to his late presentation. hospital course was complicated by discovery of apical thrombus on echocardiogram. #apical thrombus, 1.5cm -heparin drip and coumadin. INR goal 2.5-3.0. -Continue Coumadin. Bridged with heparin. Today INR is 1.56 #Acute anterior STEMI -successful intravascular lithotripsy of a chronically subtotally occlud
--- NOTE | 2023-05-28 17:58 | PC.NURSE ---
VS stable and patient remained on room air. INR not therapeutic, heparin drip infusing. No pain reported. Mild weakness noted in right arm and right leg but improved from admission. No other changes noted.
[2023-05-28 18:41] LABS: PTT Heparin (inpatient only) 94.8 Seconds (23.6-34.0)
--- NOTE | 2023-05-28 19:05 | PC.NURSE ---
heparin drip decreased to 1500 units 30ml/hr. verified with leonora langford rn
[2023-05-29] VITALS (8 sets, daily range): BP systolic 109–150; BP diastolic 63–75; PULSE 63–89; RESP 16–18; TEMP 36.4–37.1; O2SAT 96–100; BMI 32.3
--- NOTE | 2023-05-29 01:45 | PC.NURSE ---
PTT remains elevated at 84, titrated down to 28mL/hr per Mala at pharmacy. Next lab scheduled for 0800.
[2023-05-29 06:59] LABS: Basophils # 0.1 K/mm3 (0-0.2); Basophils % 0.9 % (0.1-2.0); Eosinophils # 0.4 K/mm3 (0.0-0.4); Eosinophils % 4.8 % (0.1-12.0); Hematocrit 49.6 % (42.0-52.0); Hemoglobin 16.2 g/dL (14.1-18.0); Lymphocytes # 3.2 K/mm3 (0.7-4.5); Lymphocytes % 37.3 % (10-50); Mean Corpuscular HGB Conc 32.7 g/dL (31.8-35.4); Mean Corpuscular Hemoglobin 27.5 pg (27.0-31.2); Mean Corpuscular Volume 84.1 fl (80-94); Mean Platelet Volume 9.2 fl (7.4-10.4); Monocytes # 0.6 K/mm3 (0.1-1.0); Monocytes % 7.4 % (1.7-9.3); Neutrophils # 4.3 K/mm3 (1.8-7.8); Neutrophils % 49.6 % (37.0-80.0); Platelet Count 149 K/mm3 (142-424); Red Cell Distribution Width 14.8 % (11.5-17.5); White Blood Count 8.7 K/mm3 (4.8-10.8)
[2023-05-29 07:14] LABS: Prothrombin Time 20.8 seconds (10.1-12.5)
[2023-05-29 07:15] LABS: Anion Gap 12.7 mEq/L (5-15); Blood Urea Nitrogen 19 mg/dl (9-20); Calcium 9.3 mg/dl (8.4-10.2); Carbon Dioxide 22 mmol/L (22.0-30.0); Chloride 98 mmol/L (98-107); Creatinine Clearance Estimated 125 mL/min (50-200); Estimated Glomerular Filt Rate 73 ml/min (>60); GFR (African American) 88 ML/MIN (>60); Glucose 134 mg/dl (74-100); Potassium 3.7 mmoL/L (3.5-5.1); Sodium 129 mmol/L (136-145)
[2023-05-29 08:46] LABS: PTT Heparin (inpatient only) 80.5 Seconds (23.6-34.0)
--- NOTE | 2023-05-29 09:57 | PC.NURSE ---
late entry: 0900-per pharm decrease heparin rate to 24ml/hr
[2023-05-29 13:34] LABS: PTT Heparin (inpatient only) 63.9 Seconds (23.6-34.0)
--- NOTE | 2023-05-29 17:32 | EXP.ACUTE.PN ---
Subjective *Date: 05/29/23 *Time: 17:32 Interval history: No new complaints Right upper and lower extremity weakness improved but not fully resolved No new chest pain or shortness of breath No bleeding No fevers Medical Exam Vital signs and Labs for Last 24 Hours: Vital Signs Temp Pulse Pulse Resp BP Pulse Ox O2 Del Method 05/29/23 15:19 98.0 F 75 17 119/74 97 Room Air 05/29/23 13:00 Room Air 05/29/23 12:00 89 05/29/23 11:00 Room Air 05/29/23 11:28 98.0 F 65 17 109/73 L 96 Room Air 05/29/23 09:00 Room Air 05/29/23 08:00 Room Air 05/29/23 08:00 73 05/29/23 07:35 97.9 F 69 18 120/75 99 Room Air 05/29/23 04:00 70 05/29/23 06:10 Room Air 05/29/23 05:00 Room Air 05/28/23 20:00 Room Air 05/29/23 03:00 Room Air 05/29/23 04:00 98.2 F 71 18 120/63 98 Room Air 05/29/23 00:48 Room Air 05/29/23 00:00 97.5 F L 63 16 111/65 98 Room Air 05/29/23 00:00 70 05/28/23 20:00 80 05/28/23 22:47 Room Air 05/28/23 20:51 Room Air 05/28/23 20:00 98.2 F 76 16 145/93 H 96 Room Air 05/28/23 18:56 Room Air Intake and Output 05/29/23 05/29/23 05/29/23 07:59 15:59 23:59 Intake Total 1644 / 2364 360 / 2364 360 / 2364 Output Total 1550 / 2250 700 / 2250 Balance 94 / 114 -340 / 114 360 / 114 Intake: Intake, Oral Amount 360 / 1080 360 / 1080 360 / 1080 Intake, Total IV Amount 1284 / 1284 Heparin Sodium,Porcine/D5w 500 1284 / 1284 ml @ 1,400 UNITS/HR 28 mls/hr IV .[id number] [facility] Rx#:[id number] Output: Output, Urine Amount 1550 / 2250 700 / 2250 Other: Weight 102.421 kg Patient Weight 05/29/23 23:59 Weight 102.421 kg Laboratory Results - last 24 hr 05/28/23 18:00: APTT 94.8 H* 05/29/23 01:00: APTT 84.0 H* 05/29/23 06:39: WBC 8.7, RBC 5.90, Hgb 16.2, Hct 49.6, MCV 84.1, MCH 27.5, MCHC 32.7, RDW 14.8, Plt Count 149, MPV 9.2, Neut % (Auto) 49.6, Lymph % (Auto) 37.3, Mckenzie % (Auto) 7.4, Eos % (Auto) 4.8, Baso % (Auto) 0.9, Neut # (Auto) 4.3, Lymph # (Auto) 3.2, Mckenzie # (Auto) 0.6, Eos # (Auto) 0.4, Baso # (Auto) 0.1, PT 20.8 H, INR 2.00 H, Sodium 129 L, Potassium 3.7, Chloride 98, Carbon Dioxide 22, Anion Gap 12.7, BUN 19, Creatinine 1.10, Estimated Creat Clear 125, Estimated GFR 73, Est GFR ( Amer) 88, Glucose 134 H, Calcium 9.3 05/29/23 08:11: APTT 80.5 H* 05/29/23 13:10: APTT 63.9 H* I & O for Labs for Last 24 Hours: Intake & Output 05/26/23 05/27/23 05/28/23 05/29/23 23:59 23:59 23:59 23:59 Intake Total 2643 / 2643 1720 / 1720 960 / 960 2364 / 2364 Output Total 2120 / 4720 5450 / 6350 2100 / 2500 2250 / 2250 Balance 523 / -2077 -3730 / -4630 -1140 / -1540 114 / 114 Weight 105.823 kg 102.71 kg 102.285 kg 102.421 kg Additional Findings:: Head: Present atraumatic and normocephalic Neck: Present normal inspection Respiratory: Present able to speak in complete sentences and symmetric chest movement Cardiac: Present Reg Rate and Rhythm GI: Present soft Extremities: Present normal inspection Comment:: Power on right upper extremity 4/5, bilateral lower extremity 4/5. Power on left upper and lower extremity 5/5. No facial droop. Assessment and Plan *Assessment and plan (1) LV (left ventricular) mural thrombus following [place]: Status: Acute Category: Medical Code(s): I23.6 - Thrombosis of atrium, auricular appendage, and ventricle as current complications following acute myocardial infarction (2) Myocardial infarction of anterior wall: Status: Acute Category: Medical Code(s): I21.09 - ST elevation (STEMI) myocardial infarction involving other coronary artery of anterior wall (3) Acute CVA (cerebrovascular accident): Status: Acute Category: Medical Code(s): I63.9 - Cerebral infarction, unspecified (4) Hypertensive emergency: Status: Acute Category: Medical
[2023-05-29 20:03] LABS: Sodium 130 mmol/L (136-145)
[2023-05-29 21:33] LABS: PTT Heparin (inpatient only) 55.5 Seconds (23.6-34.0)
--- NOTE | 2023-05-29 22:12 | PC.NURSE ---
Ptt result called to Ricardo at pharmacy, no adjust to be made to heparin drip.
[2023-05-30] VITALS: BP 119/58; PULSE 70; PULSE 72; RESP 16; TEMP 36.8; O2SAT 98
[2023-05-30 04:00] VITALS: BP 103/59; PULSE 59; PULSE 60; RESP 18; TEMP 36.6; O2SAT 98; BMI 32.5
[2023-05-30 06:28] LABS: Anion Gap 11.8 mEq/L (5-15); Blood Urea Nitrogen 21 mg/dl (9-20); Calcium 9.6 mg/dl (8.4-10.2); Carbon Dioxide 25 mmol/L (22.0-30.0); Chloride 96 mmol/L (98-107); Creatinine Clearance Estimated 107 mL/min (50-200); Estimated Glomerular Filt Rate 60 ml/min (>60); GFR (African American) 73 ML/MIN (>60); Glucose 128 mg/dl (74-100); Potassium 3.8 mmoL/L (3.5-5.1); Sodium 129 mmol/L (136-145)
[2023-05-30 06:29] LABS: INR 2.32 (0.9-1.1); Prothrombin Time 23.9 seconds (10.1-12.5)
[2023-05-30 06:44] LABS: PTT Heparin (inpatient only) 69.3 Seconds (23.6-34.0)
--- NOTE | 2023-05-30 06:52 | PC.NURSE ---
Ptt results called to Mala at pharmacy.
[2023-05-30 08:00] VITALS: BP 113/62; PULSE 69; PULSE 70; RESP 24; TEMP 36.5; O2SAT 94
--- NOTE | 2023-05-30 09:38 | PC.NURSE ---
Courtesy Tech Note: Rounded on pt. pt needed no assitance after putting heart monitor back on.
[2023-05-30 10:22] VITALS: PULSE 60
--- NOTE | 2023-05-30 10:31 | EXP.DC.SUM ---
General Admission date:: 05/22/23 Discharge date: 05/30/23 HPI HPI HPI: 43-year-old male with history of hypertension, who recently moved here to [place] from [place], not established with a primary care, on antihypertensive medication was brought to the emergency room by his as he started experiencing uncoordinated sudden onset movements of his right upper and lower extremity. He said he felt extremely fatigued and tired and was having some dizziness for the last 2 days. He said he ran out of his antihypertensive medications including carvedilol and chlorthalidone probably was running high blood pressure because of this reason. Today while he was at his workplace start experiencing significant uncoordinated movement of his right upper and lower extremity. Then he felt that his legs and arms were significantly weak only on the right side. He had to drag his foot to walk. This made him come to the ER. In the ER stroke protocol was initiated. His initial vitals show that his blood pressure was significantly elevated in the 190s systolic. He was pretty much alert awake oriented x3 and able to give a history. He did not experience any slurred speech or facial droop. His CT scan of head without contrast was unremarkable. His CTA of head and neck showed beading appearance of the left cerebral artery and significant left M1 stenosis and severe stenosis of posterior inferior branch of left MCA. Given his delayed presentation he was not deemed a tPA candidate. He was diagnosed with acute left MCA territory CVA and being admitted for further management. When I saw him in the room patient was able to narrate his history without any difficulty. His is at bedside who agreed to the history. He states his right-sided weakness is unchanged since it started. No other new neurological deficits reported. He has difficulty walking and lifting things with his right hand. His vision is unaffected. He denies any chest pain, shortness of breath, abdominal pain, nausea vomiting, joint pains or skin rashes He is a three-quarter pack smoker for over 20 years. Denies excessive alcohol abuse or illicit drug use. Review of systems negative except for what is mentioned above Hospital Course Hospital Course Hospital Course: Mr. Miramontes is a 43 year old male with a past medical history of hypertension, cigarette nicotine dependence (>10 pack year history), who recently moved from [place] and hasn't established care with a PCP, who presented with weakness and involuntary movements of the right upper and lower extremities. He was admitted on 05/21 acute CVA of the left MCA territory. TPA could not be administered due to his late presentation. hospital course was complicated by discovery of apical thrombus on echocardiogram. Patient was started on warfarin. Monitored until he was therapeutic. Has had marginal improvement in his right-sided deficits. Stable for discharge home. Would benefit from home health, this is complicated however by issues with insurance/payer source. Stable for discharge. Problems addressed as follows: #apical thrombus, 1.5cm -heparin drip and coumadin. INR goal 2.0-3.0. INR improved to 2.3 by day of discharge. Continue current dose of warfarin at 10 mg daily. We will have close follow-up with Coumadin clinic this week for further monitoring. Discontinue heparin at this time. #Acute anterior STEMI -successful intravascular lithotripsy of a chronically subtotally occluded proximal and mid LAD with 6 contiguous drug-eluting stents extending from the proximal mid and distal LAD. successful stenting of the distal left main artery extending to the proximal LAD. Cardiology consulted during admission and assisted with care. Provided with medications prior to discharge. Continue aspirin, Brilinta, high intensity statin. #acute CVA, left MCA territory -CTA head/neck with beading appearance of the left cerebral artery with stenosis of the l
[2023-05-30 11:56] VITALS: BP 99/61; PULSE 83; RESP 22; TEMP 36.7; O2SAT 97
--- NOTE | 2023-05-30 12:43 | EXP.CARD.PN ---
Subjective Subjective Date: 05/30/23 Time: 09:30 Principal diagnosis: CVA, LV thrombus and recent NH Interval history: This is a 43-year-old white gentleman who had recent CVA and STEMI with LV thrombus. He states that his right arm still feels kind of numb but every day this continues to improve. He states his right leg weakness has significantly improved as well. He is now ambulating without assistance. He denies any chest pain or pressure. He denies any shortness of breath or edema. He denies any fever, chills, nausea, vomiting, diarrhea, PND or orthopnea. His INR is 2.3 today. Exam Data for Last 24 hours Vital signs and Labs for Last 24 Hours: Temp Pulse Resp BP Pulse Ox O2 Del Method FiO2 98.0 F 83 22 99/61 L 97 Room Air 99 05/30/23 11:56 05/30/23 11:56 05/30/23 11:56 05/30/23 11:56 05/30/23 11:56 05/30/23 11:56 05/25/23 00:00 Laboratory Results - last 24 hr 05/29/23 13:10: APTT 63.9 H* 05/29/23 19:40: Sodium 130 L 05/29/23 21:15: APTT 55.5 H* 05/30/23 06:03: PT 23.9 H, INR 2.32 H, APTT 69.3 H*, Sodium 129 L, Potassium 3.8, Chloride 96 L, Carbon Dioxide 25, Anion Gap 11.8, BUN 21 H, Creatinine 1.30 H, Estimated Creat Clear 107, Estimated GFR 60, Est GFR ( Amer) 73, Glucose 128 H, Calcium 9.6 I & O for Last 24 hours: Intake & Output 05/27/23 05/28/23 05/29/23 05/30/23 23:59 23:59 23:59 23:59 Intake Total 1720 / 1720 960 / 960 2364 / 2364 762 / 762 Output Total 5450 / 6350 2100 / 2500 3000 / 3100 951 / 951 Balance -3730 / -4630 -1140 / -1540 -636 / -736 -189 / -189 Weight 226 lb 7 oz 225 lb 8 oz 225 lb 12.8 oz 226 lb 14.4 oz Constitutional Constitutional: no acute distress and obese *Routine HEENT Exam Head: Present normocephalic and atraumatic ENT: Present mucous membranes moist *Routine Neck Exam Neck: Present supple, full ROM and normal carotid upstroke; Absent JVD, carotid bruit or lymphadenopathy *Routine Respiratory Exam Respiratory: Present CTA bilaterally, normal respiratory effort, able to speak in complete sentences and symmetric chest movement *Routine Cardiovascular Exam Cardiovascular: Present RRR, Normal S1 and Normal S2; Absent murmur or gallop *Routine Abdominal Exam Abdominal: Present soft and normoactive bowel sounds; Absent tenderness, distended or organomegaly *Routine Extremities Exam Extremities: Present full ROM, pulses intact and normal capillary refill; Absent cyanosis, clubbing or edema *Routine Skin Exam Skin: Present intact and warm; Absent erythema *Routine Neurological Exam Neurological: Present alert, oriented X3 and CN II-XII intact; Absent sensory deficit or motor deficit Routine Psychiatric Exam Psychiatric: Present normal affect Progress Note: A&P Assessment and plan (1) LV (left ventricular) mural thrombus following NH: Status: Acute (2) Myocardial infarction of anterior wall: Status: Acute (3) Acute CVA (cerebrovascular accident): Status: Acute (4) Noncompliance with medication regimen: Status: Acute (5) Nicotine dependence: Status: Acute (6) Hyperlipidemia: Status: Acute (7) Ischemic cardiomyopathy: Status: Acute (8) HFrEF (heart failure with reduced ejection fraction): Status: Acute Assessment and Plan Assessment and Plan for All Diagnoses:: Plan: 1. The patient presented to the hospital and had right-sided weakness and numbness. The patient did have a CVA and still has some right-sided residual effects. However the numbness in his right upper extremity is improving and the weakness in his right lower extremity is improving. 2. The patient did have an anterior wall NH. The patient had lithotripsy and stenting to the LAD with 6 stents as well as stents to the left main artery. He attempted stenting/revascularization of the right coronary artery which was unsuccessful. The patient will be on Plavix and aspirin for dual antiplatelet therapy. 3. The patient also had a large LV thrombus and
--- NOTE | 2023-05-30 13:11 | P.CONPHA_ITS ---
PHA Fountain Supervisor Discharge Med Coat Hanger Shaper Machine Operator: Rc Miramontes has received discharge medication counseling on the following medications: ASPIRIN PLAVIX CARVEDILOL ENTRESTO LIPITOR PATIENT ALSO STARTING WARFARIN. [facility] THE EXCEPTION OF PLAVIX, [facility]. PATIENT VERBALIZED UNDERSTANDING AND HAD NO QUESTIONS AT THIS TIME. -RONAK MIDDLETON, KASHD
--- NOTE | 2023-05-30 13:11 | HMH.PHACL ---
PHA Supervisor Cereal Discharge Med Recreation Clerk: Rc Miramontes has received discharge medication counseling on the following medications: ASPIRIN PLAVIX CARVEDILOL ENTRESTO LIPITOR PATIENT ALSO STARTING WARFARIN. [facility] OF [facility], [facility] PATIENT VERBALIZED UNDERSTANDING AND HAD NO QUESTIONS AT THIS TIME. -RONAK MIDDLETON, KASHD
--- NOTE | 2023-05-31 14:22 | CARE MANAGER ---
Contacted patient related to hospital discharge. He states he did get his medications from the pharmacies and he is aware of his follow up appointments. Denies questions or concerns. MERLINE Trinidad
== END 2023-05-30 14:34 | disposition home or self-care (01) | DRG 981 ==
LOC: ER 17:08 → 2ND 17:13
PROVIDERS: Internal Medicine; Physician Assistant; Admitting Provider Internal Medicine; Emergency Provider Student in an Organized Health Care Education/Training Program; Visit Provider Internal Medicine
PROC: 027136Z Dilation of Coronary Artery, Two Arteries with Three Drug-eluting Intraluminal Devices, Percutaneous Approach (ICD-10-PCS; principal; 2023-05-24 15:00)
DX: I63.9 Cerebral infarction, unspecified (principal); I21.09 ST elevation (STEMI) myocardial infarction involving other coronary artery of anterior wall; I16.1 Hypertensive emergency; E87.6 Hypokalemia; F17.210 Nicotine dependence, cigarettes, uncomplicated; I10 Essential (primary) hypertension; Z91.148 Patient's other noncompliance with medication regimen for other reason; I51.3 Intracardiac thrombosis, not elsewhere classified; I25.10 Atherosclerotic heart disease of native coronary artery without angina pectoris
CPT/HCPCS: 0715T; 36252; 36415; 70450; 70496; 70498; 70551; 71045; 80048; 80053; 80061; 80305; 82962; 83036; 83735; 84100; 84295; 84484; 85025; 85347; 85610; 85651; 85730; 86140; 87636; 92610; 92928; 92978; 93005; 93306; 93454; 97110; 97116; 97162; 97166; 97530; 97535; 99152; 99153; 99291; C1725; C1760; C1761; C1769; C1874; C1876; C1894; C9600; G0378; J1644; Q9967

== ENCOUNTER 2023-06-03 13:46 | Outpatient (CLI) | payer OTHER, SELFPAY ==
[2023-06-03 16:00] LABS: PHA INR Fingerstick 3.3 (0.9-1.1)
== END 2023-06-03 16:07 ==
PROVIDERS: Visit Provider Nurse Practitioner Family
DX: Z51.81 Encounter for therapeutic drug level monitoring (principal); Z79.01 Long term (current) use of anticoagulants
CPT/HCPCS: 85610; 99211; G0463

== ENCOUNTER → 2023-06-07 15:47 | Outpatient (CLI) | payer OTHER, SELFPAY ==
[2023-06-07 16:04] LABS: Basophils # 0.1 K/mm3 (0-0.2); Basophils % 0.9 % (0.1-2.0); Eosinophils # 0.6 K/mm3 (0.0-0.4); Eosinophils % 5.2 % (0.1-12.0); Hematocrit 49.9 % (42.0-52.0); Lymphocytes # 3.2 K/mm3 (0.7-4.5); Lymphocytes % 27.7 % (10-50); Mean Corpuscular Hemoglobin 27.4 pg (27.0-31.2); Mean Corpuscular Volume 85.5 fl (80-94); Mean Platelet Volume 7.7 fl (7.4-10.4); Monocytes # 0.6 K/mm3 (0.1-1.0); Monocytes % 5.4 % (1.7-9.3); Neutrophils % 60.8 % (37.0-80.0); Platelet Count 184 K/mm3 (142-424); Red Blood Count 5.84 M/mm3 (4.60-6.20); White Blood Count 11.5 K/mm3 (4.8-10.8)
[2023-06-07 18:28] LABS: Anion Gap 14.6 mEq/L (5-15); Blood Urea Nitrogen 12 mg/dl (9-20); Calcium 9.1 mg/dl (8.4-10.2); Carbon Dioxide 26 mmol/L (22.0-30.0); Chloride 102 mmol/L (98-107); Estimated Glomerular Filt Rate 66 ml/min (>60); GFR (African American) 80 ML/MIN (>60); Glucose 106 mg/dl (74-100); Potassium 4.6 mmoL/L (3.5-5.1); Sodium 138 mmol/L (136-145)
[2023-06-07 18:40] LABS: Free T4 (Free Thyroxine) 1.03 ng/dl (0.78-2.19)
[2023-06-07 18:54] LABS: Thyroid Stimulating Hormone 3.98 uIU/mL (0.465-4.68)
== END ==
LOC: LAB 15:47
PROVIDERS: Visit Provider Internal Medicine
DX: I25.10 Atherosclerotic heart disease of native coronary artery without angina pectoris (principal); I25.5 Ischemic cardiomyopathy; I21.09 ST elevation (STEMI) myocardial infarction involving other coronary artery of anterior wall; I23.6 Thrombosis of atrium, auricular appendage, and ventricle as current complications following acute myocardial infarction; I50.20 Unspecified systolic (congestive) heart failure; E78.5 Hyperlipidemia, unspecified; I63.9 Cerebral infarction, unspecified; F17.200 Nicotine dependence, unspecified, uncomplicated
CPT/HCPCS: 36415; 80048; 83735; 84439; 84443; 85025

== ENCOUNTER 2023-06-07 16:55 | Outpatient (RCR) | payer OTHER, SELFPAY ==
--- NOTE | 2023-06-07 18:14 | HMH.PTOPEV ---
PT Outpatient Evaluation Rehab PT Outpatient Evaluation Start: 06/07/23 16:56 Freq: Status: Active Protocol: Document 06/07/23 16:57 SAGAROZIEL (Rec: 06/07/23 18:14 ESTEBAN [id number]) E-signed By Erica Payne, PT Outpatient Therapy Subjective History Subjective History Pt is a 43 y/o male who reports on 05/21/23 he experienced uncoordinated movements and weakness of the RUE/RLE with difficulty lifting his right foot to walk . Pt reports he went to the ER at [facility] and underwent a stroke protocol. Pt had a brain MRI on 05/23/23 with impression of Acute infarct of the posterior left basal ganglia and left periventricular white matter. Pt reports he also had 7 stents placed during hospitalization. Pt reports he used to smoke 2 packs of cigarettes a day and now only smokes 4 cigarettes a day. Pt states he has been getting migraines everyday he thinks is due to this. Pt reports he does get fatigued easily with some shortness of breath. Pt reports continued weakness and lack of coordination of the right upper and lower extremities. Pt also reports balance deficits requiring a RW for ambulation. Pt reports in the hospital he was unable to move his ankle and had foot drop but he is now able to move it. Pt reports he has fallen twice in the bath tub since hospitalization but denies serious injuries from the falls. Pt reports his right knee has been hyperextending so he is wearing a knee brace to assist with this. Pt reports his right arm is constantly numb and his right leg has intermittent numbness/tingling
== END 2023-06-07 16:59 | disposition home or self-care (01) ==
LOC: PT 16:55
PROVIDERS: PCP Internal Medicine; Visit Provider Internal Medicine Adolescent Medicine
DX: I63.9 Cerebral infarction, unspecified (principal)
CPT/HCPCS: 97163

== ENCOUNTER 2023-06-07 23:11 | Emergency (ER) | payer OTHER, SELFPAY ==
[2023-06-07 23:12] VITALS: BP 151/98; PULSE 98; RESP 16; TEMP 37.1; O2SAT 99; BMI 36.0
--- NOTE | 2023-06-07 23:24 | PC.NURSE ---
MD at bedside during triage assessment
--- NOTE | 2023-06-07 23:30 | CT_ITS ---
PROCEDURE INFORMATION: Exam: CT Thoracic Spine Without Contrast Exam date and time: 06/07/2023 11:55 PM Age: 43 years old Clinical indication: Pain in thoracic spine; Additional info: Recent cath, urinary retention diffuse pain TECHNIQUE: Imaging protocol: Computed tomography of the thoracic spine without contrast. Radiation optimization: All CT scans at this facility use at least one of these dose optimization techniques: automated exposure control; mA and/or kV adjustment per patient size (includes targeted exams where dose is matched to clinical indication); or iterative reconstruction. REPORTING DATA: Count of CT and Cardiac NM exams in prior 12 months: This patient has received 4 known CTs and 0 known cardiac nuclear medicine studies in the 12 months prior to the current study. COMPARISON: CR XR CHEST PORTABLE 05/21/2023 4:36 PM FINDINGS: Bones/joints: Thoracic vertebrae normal in height. No acute fracture. Slight leftward curvature. Minimal degenerative changes of the lower cervical and lower thoracic spine. No significant posterior disc herniation. No significant neural foraminal narrowing or spinal canal stenosis. Soft tissues: Unremarkable. Lymph nodes: Calcified mediastinal and left hilar lymph nodes. Lungs: Mild dependent atelectasis. Spleen: Small splenic calcifications. IMPRESSION: 1. No acute osseous findings of the thoracic spine. 2. Minimal lower cervical and lower thoracic spine degenerative changes. No significant neural foraminal narrowing or spinal canal stenosis.
--- NOTE | 2023-06-07 23:30 | CT_ITS ---
PROCEDURE INFORMATION: Exam: CT Lumbar Spine Without Contrast Exam date and time: 06/07/2023 11:57 PM Age: 43 years old Clinical indication: Low back pain; Additional info: Recent cath, urinary retention diffuse pain TECHNIQUE: Imaging protocol: Computed tomography of the lumbar spine without contrast. Radiation optimization: All CT scans at this facility use at least one of these dose optimization techniques: automated exposure control; mA and/or kV adjustment per patient size (includes targeted exams where dose is matched to clinical indication); or iterative reconstruction. REPORTING DATA: Count of CT and Cardiac NM exams in prior 12 months: This patient has received 4 known CTs and 0 known cardiac nuclear medicine studies in the 12 months prior to the current study. COMPARISON: CT THORACIC SPINE WO CON 06/07/2023 11:55 PM FINDINGS: Bones/joints: Lumbar vertebrae normal in height. Normal alignment. No acute fracture. Maintained intervertebral disc spaces. Mild scattered degenerative changes consisting of marginal osteophytes and facet arthrosis. Posterior disc bulging at L4-L5 contributing to mild bilateral neural foraminal narrowing and mild spinal canal stenosis. Mild degenerative changes of the bilateral sacroiliac joints. Soft tissues: Unremarkable. IMPRESSION: 1. No acute osseous findings of the lumbar spine 2. Mild lumbar spondylosis. L4-L5 posterior disc bulge contributing to mild bilateral neural foraminal narrowing and mild spinal canal stenosis. 3. Mild bilateral sacroiliac joint degenerative changes.
--- NOTE | 2023-06-07 23:34 | HMH.EDGENADL ---
Discharge Plan Disposition Patient Disposition: Xfer Short-Term Hosp Chief Complaint: Urogenital-Male Prescriptions Prescriptions: No Action warfarin [Jantoven] 5 mg tablet 7.5 mg PO COUMADIN Jardiance 10 mg tablet 10 mg PO DAILY Qty: 30 3RF atorvastatin 40 mg Tablet 40 mg PO HS 30 Days Qty: 30 0RF carvedilol 12.5 mg Tablet 12.5 mg PO BID 30 Days Qty: 60 0RF clopidogrel 75 mg Tablet 75 mg PO DAILY 30 Days Qty: 30 0RF aspirin 81 mg Tablet,Chewable 81 mg PO DAILY 30 Days Qty: 30 0RF sacubitril-valsartan 49-51 mg tablet 1 tab PO BID 30 Days Qty: 60 0RF Clinical Impressions Clinical Impression: Right leg weakness, Acute urinary retention, Back pain Discharge ED Provider: Bryant Funes General Adult HPI General Chief complaint: Urogenital-Male Stated complaint: Unable to urinate Time Seen by Provider: 06/07/23 23:20 History of Present Illness HPI narrative: Patient is a 43-year-old male with past medical history of recent ACS status post stenting, resultant CVA with right-sided deficits who presents emergency department for evaluation of cute onset urinary retention. Onset was acute, 3 PM today. Patient had an acute inability to void, worsening right lower extremity weakness, numbness on the tip of his penis. Due to inability to void he presents here for continued evaluation. Patient denies fevers. There is associated midline and diffuse back pain over his lower thoracic and lumbar spine. Patient is anticoagulated on Coumadin. Per chart review of recent hospital admission patient has a 1.5 cm apical LV thrombus and an estimated ejection fraction of 40 to 45% with severe concentric hypertrophy, STEMI was acute anterior with successful intravascular lithotripsy with 6 drug-eluting stents placed. Patient was also placed on dual antiplatelet therapy. MRI brain showed acute infarct of the posterior left basal ganglia and left periventricular white matter. Related Data Home Medications Medication Instructions Recorded Confirmed warfarin 5 mg tablet (Novtoven) 7.5 mg PO COUMADIN 06/07/23 Previous Rx's Medication Instructions Recorded aspirin 81 mg chewable tablet 81 mg PO DAILY 30 days #30 tabs 05/30/23 atorvastatin 40 mg tablet 40 mg PO HS 30 days #30 tabs 05/30/23 carvedilol 12.5 mg tablet 12.5 mg PO BID 30 days #60 tabs 05/30/23 clopidogrel 75 mg tablet 75 mg PO DAILY 30 days #30 tabs 05/30/23 sacubitril 49 mg-valsartan 51 mg 1 tab PO BID 30 days #60 tabs 05/30/23 tablet empagliflozin 10 mg tablet 10 mg PO DAILY #30 tabs 06/07/23 (Jardiance) Allergies Allergy/AdvReac Type Severity Reaction Status Date / Time lisinopril Allergy Verified 06/07/23 15:17 morphine Allergy Verified 06/07/23 23:53 PFSH [facility] Disclaimer: The information contained in this section may have been updated after the patient was seen, as this information can be updated by other users. Medical History (Updated 06/08/23 @ 01:47 by Bryant Funes MD) Acute CVA (cerebrovascular accident) Coronary artery disease HFrEF (heart failure with reduced ejection fraction) Hyperlipidemia Hypertension Ischemic cardiomyopathy LV (left ventricular) mural thrombus following SD Myocardial infarction of anterior wall Nicotine dependence Family History Mother Lung cancer Father Family history of myocardial infarction Social History Smoking Status: Current every day smoker alcohol intake: never current occupational status: other Travel in the last 8 weeks: None ROS Obtained: Yes Systems reviewed as appropriate & no additional complaints except as documented Physical Exam General General appearance: alert and in distress Head Head exam: atraumatic and normocephalic Eye Eye exam: Present PERRL and EOMI ENT ENT exam: Present mucous membranes moist Neck Neck exam: Pr
--- NOTE | 2023-06-07 23:47 | PC.NURSE ---
patient gone to RAD at this time.
[2023-06-07 23:52] LABS: Microscopic, Urine URINE MICROSCOPIC (MICROSCOPIC)
--- NOTE | 2023-06-08 | CT_ITS ---
PROCEDURE INFORMATION: Exam: CTA Neck With Contrast Exam date and time: 06/08/2023 12:10 AM Age: 43 years old Clinical indication: Other: Recent cva/worsening; Additional info: Recent cva/worsening weakness urinary retention TECHNIQUE: Imaging protocol: Computed tomographic angiography of the neck with contrast. 3D rendering (Not supervised by radiologist): MIP and/or 3D reconstructed images were created by the technologist. Radiation optimization: All CT scans at this facility use at least one of these dose optimization techniques: automated exposure control; mA and/or kV adjustment per patient size (includes targeted exams where dose is matched to clinical indication); or iterative reconstruction. Contrast material: ISOUVE; Contrast volume: 100 ml; Contrast route: INTRAVENOUS (IV); REPORTING DATA: Count of CT and Cardiac NM exams in prior 12 months: This patient has received 6 known CTs and 0 known cardiac nuclear medicine studies in the 12 months prior to the current study. COMPARISON: CT ANGIO NECK 05/21/2023 4:33 PM FINDINGS: Right common carotid artery: No stenosis. No dissection or occlusion. Right internal carotid artery: Right internal carotid artery demonstrates mild intimal thickening and calcific plaque without significant luminal narrowing (NASCET category 2, less than 50% diameter reduction). Right external carotid artery: No occlusion or stenosis of the origin. Left common carotid artery: No stenosis. No dissection or occlusion. Left internal carotid artery: Left internal carotid artery demonstrates mild intimal thickening and calcific plaque without significant luminal narrowing (NASCET category 2, less than 50% diameter reduction). Left external carotid artery: No occlusion or stenosis of the origin. Right vertebral artery: No stenosis. No dissection or occlusion. Left vertebral artery: No stenosis. No dissection or occlusion. Pharynx: Normal fossa of Rosenmuller. Normal tonsillar pillars. Scattered tonsillar calcifications. Larynx: Normal epiglottis. Symmetric vocal folds. Thyroid: Homogeneous thyroid. Soft tissues: Normal. No significant soft tissue swelling. Bones/joints: No acute fracture. Lungs: Clear lung apices. IMPRESSION: No hemodynamically significant stenosis seen in either carotid bifurcation. Patent bilateral vertebral arteries. REFERENCES: NASCET CRITERIA. The degree of stenosis in the cervical segment of the internal carotid artery is based on NASCET criteria. Normal is no stenosis. Mild is less than 50% stenosis. Moderate is 50-69% stenosis. Severe is 70% to 99% stenosis. Total occlusion is no detectable patent lumen.
--- NOTE | 2023-06-08 | CT_ITS ---
PROCEDURE INFORMATION: Exam: CT Head Without Contrast Exam date and time: 06/08/2023 12:07 AM Age: 43 years old Clinical indication: Other: Recent cva/worsening weakness urinary retention TECHNIQUE: Imaging protocol: Computed tomography of the head without contrast. Total images: 271 Radiation optimization: All CT scans at this facility use at least one of these dose optimization techniques: automated exposure control; mA and/or kV adjustment per patient size (includes targeted exams where dose is matched to clinical indication); or iterative reconstruction. REPORTING DATA: Count of CT and Cardiac NM exams in prior 12 months: This patient has received 6 known CTs and 0 known cardiac nuclear medicine studies in the 12 months prior to the current study. COMPARISON: CT HEAD/BRAIN WO CON 05/24/2023 9:30 AM FINDINGS: Brain: No acute intracranial hemorrhage, midline shift, or mass. Mild cortical atrophy greater than expected for patient age. Remote lacunar infarct within the left basal ganglia, associated with the lentiform nucleus, anterior limb of the internal capsule, and caudate. No acute superimposed intracranial process. Cerebral ventricles: No ventriculomegaly. Paranasal sinuses: 8 mm retention cyst anterior wall left maxillary sinus. Mastoid air cells: Visualized mastoid air cells are well aerated. Bones/joints: Unremarkable. No acute fracture. Soft tissues: Unremarkable. IMPRESSION: 1. No acute intracranial process. 2. Stable chronic findings. 3. No significant change from May 24, 2023.
--- NOTE | 2023-06-08 | CT_ITS ---
PROCEDURE INFORMATION: Exam: CTA Head With Contrast, Arteriography Exam date and time: 06/08/2023 12:10 AM Age: 43 years old Clinical indication: Other: Lv thrombus/ acute urinary retention/ recent CVA TECHNIQUE: Imaging protocol: Computed tomographic angiography of the head with contrast. Exam focused on the arteries. 3D rendering (Not supervised by radiologist): MIP and/or 3D reconstructed images were created by the technologist. Radiation optimization: All CT scans at this facility use at least one of these dose optimization techniques: automated exposure control; mA and/or kV adjustment per patient size (includes targeted exams where dose is matched to clinical indication); or iterative reconstruction. Contrast material: ISOVUE; Contrast volume: 100 ml; Contrast route: INTRAVENOUS (IV); REPORTING DATA: Count of CT and Cardiac NM exams in prior 12 months: This patient has received 6 known CTs and 0 known cardiac nuclear medicine studies in the 12 months prior to the current study. COMPARISON: CT ANGIO HEAD 05/21/2023 4:33 PM FINDINGS: ANTERIOR CIRCULATION: Right internal carotid artery: Intracranial segment is patent with no significant stenosis. No aneurysm. Right middle cerebral artery: There is a beaded appearance the right middle cerebral artery without occlusion. Right anterior cerebral artery: No occlusion or significant stenosis. No aneurysm. Left internal carotid artery: Intracranial segment is patent with no significant stenosis. No aneurysm. Left middle cerebral artery: Beaded appearance of the left middle cerebral artery. In the M2 segment, there is a web-like high-grade stenosis. Left anterior cerebral artery: No occlusion or significant stenosis. No aneurysm. POSTERIOR CIRCULATION: Right vertebral artery: No occlusion or significant stenosis. No aneurysm. Left vertebral artery: No occlusion or significant stenosis. No aneurysm. Basilar artery: No occlusion or significant stenosis. No aneurysm. Right posterior cerebral artery: No occlusion or significant stenosis. No aneurysm. Left posterior cerebral artery: No occlusion or significant stenosis. No aneurysm. Veins: Contrast has not yet reached the venous system. Brain: Tapering of the intracranial vessels may reflect early bolus timing. Cerebral ventricles: No ventriculomegaly. Bones/joints: Unremarkable. No acute fracture. Soft tissues: Unremarkable. IMPRESSION: No convincing findings of large vessel occlusion. There is irregularity of each middle cerebral artery with a web-like area of stenosis in the distal left M2 segment. Findings may reflect fibromuscular dysplasia or intracranial atherosclerosis.
--- NOTE | 2023-06-08 | CT_ITS ---
PROCEDURE INFORMATION: Exam: CTA Abdomen and Pelvis With Contrast Exam date and time: 06/08/2023 12:15 AM Age: 43 years old Clinical indication: Other: Recent cva/lv thrombus/ acute urine retention TECHNIQUE: Imaging protocol: Computed tomographic angiography of the abdomen and pelvis with contrast. Exam focused on the arteries. 3D rendering (Not supervised by radiologist): MIP and/or 3D reconstructed images were created by the technologist. Radiation optimization: All CT scans at this facility use at least one of these dose optimization techniques: automated exposure control; mA and/or kV adjustment per patient size (includes targeted exams where dose is matched to clinical indication); or iterative reconstruction. Contrast material: ISOVUE; Contrast volume: 100 ml; Contrast route: INTRAVENOUS (IV); REPORTING DATA: Count of CT and Cardiac NM exams in prior 12 months: This patient has received 6 known CTs and 0 known cardiac nuclear medicine studies in the 12 months prior to the current study. COMPARISON: CT LUMBAR SPINE WO CON 06/07/2023 11:57 PM FINDINGS: Lungs: Left lower lobe calcified granuloma. Minimal dependent atelectasis. Coronary arteries: Coronary artery calcifications. Aorta: [id number] atherosclerosis of the infrarenal abdominal aorta. No aortic aneurysm. No aortic dissection. Celiac trunk and mesenteric arteries: No occlusion or significant stenosis. Renal arteries: No occlusion or significant stenosis. Right iliac arteries: Zyts-oh-trykohvi atherosclerosis. No occlusion or significant stenosis. Left iliac arteries: Cjen-tv-tttgnvqo atherosclerosis. No occlusion or significant stenosis. Liver: No mass. Gallbladder and bile ducts: Unremarkable. No calcified stones. No ductal dilation. Pancreas: Unremarkable. No mass. No ductal dilation. Spleen: Small splenic calcifications. Adrenal glands: Unremarkable. No mass. Kidneys and ureters: Incomplete rotation of the right kidney with the hilum facing anteriorly. Normal opacification of the renal pelves and ureters. No dilation of the urinary collecting system. Stomach and bowel: Fatty wall deposition of the terminal ileum and colon likely representing sequela remote infectious or inflammatory process. No obstruction. No mucosal thickening. Appendix: No evidence of appendicitis. Intraperitoneal space: Unremarkable. No free air. No significant fluid collection. Lymph nodes: Unremarkable. No enlarged lymph nodes. Urinary bladder: Contracted urinary bladder with a Castillo catheter in appropriate position. Minimal anti dependent air consistent with recent catheterization. Reproductive: Mild enlargement of the prostate. Bones/joints: No acute fracture. Soft tissues: Mild bilateral gynecomastia. IMPRESSION: 1. Ukvl-on-ftwwyfrs atherosclerosis of the infrarenal abdominal aorta and bilateral iliac arteries without aneurysmal dilatation. 2. Castillo catheter in appropriate position.
--- NOTE | 2023-06-08 | PC.NURSE ---
Bladder scan showed 1200ml of fluid. Castillo cath inserted and 1600ml of clear pale yellow urine immediately drained. Pt advised he had much relief but still had pain in his lower back.
[2023-06-08 00:04] LABS: Chloride 101 mmol/L (98-107)
[2023-06-08 00:09] LABS: Alanine Aminotransferase 25 U/L (12-78); Albumin Level 4.4 g/dl (3.5-5.0); Albumin/Globulin Ratio 1.3 (1.1-1.8); Alkaline Phosphatase 94 U/L (38-126); Aspartate Amino Transferase 27 U/L (17-59); Bilirubin,Total 0.9 mg/dl (0.2-1.3); Blood Urea Nitrogen 10 mg/dl (9-20); Calcium 9.1 mg/dl (8.4-10.2); Carbon Dioxide 24 mmol/L (22.0-30.0); Creatinine Clearance Estimated 117 mL/min (50-200); Estimated Glomerular Filt Rate 66 ml/min (>60); GFR (African American) 80 ML/MIN (>60); Globulin 3.5 g/dL (1.3-3.2); Glucose 118 mg/dl (74-100); INR 1.94 (0.9-1.1); Potassium 3.7 mmoL/L (3.5-5.1); Prothrombin Time 20.1 seconds (10.1-12.5); Sodium 135 mmol/L (136-145); Total Protein,Serum 7.9 g/dl (6.3-8.2)
[2023-06-08 00:11] LABS: Basophils # 0.1 K/mm3 (0-0.2); Basophils % 0.5 % (0.1-2.0); Eosinophils # 0.5 K/mm3 (0.0-0.4); Eosinophils % 4.1 % (0.1-12.0); Hematocrit 49.7 % (42.0-52.0); Hemoglobin 16.1 g/dL (14.1-18.0); Lymphocytes # 2.9 K/mm3 (0.7-4.5); Mean Corpuscular HGB Conc 32.4 g/dL (31.8-35.4); Mean Corpuscular Hemoglobin 27.3 pg (27.0-31.2); Mean Corpuscular Volume 84.4 fl (80-94); Mean Platelet Volume 7.7 fl (7.4-10.4); Monocytes # 0.8 K/mm3 (0.1-1.0); Monocytes % 6.9 % (1.7-9.3); Neutrophils # 6.9 K/mm3 (1.8-7.8); Neutrophils % 62.5 % (37.0-80.0); Platelet Count 173 K/mm3 (142-424); Red Blood Count 5.88 M/mm3 (4.60-6.20); Red Cell Distribution Width 14.8 % (11.5-17.5); White Blood Count 11.1 K/mm3 (4.8-10.8)
[2023-06-08 00:12] LABS: Anion Gap 13.7 mEq/L (5-15)
[2023-06-08 00:19] LABS: RBC,Urine Occasional #/hpf (0-3)
[2023-06-08 00:32] LABS: Appearance,Urine CLEAR (Clear); Bilirubin,Urine Negative (Negative); Blood, Urine 1+ (Negative); Color,Urine STRAW (Yellow); Glucose,Urine (UA) Negative (Negative); Ketones,Urine Negative (Negative); Leukocyte Esterase,Urine Negative (Negative); Nitrate,Urine Negative (Negative); PH,Urine 5.5 (5.0-8.5); Protein,Urine Negative (Negative); Specific Gravity, Urine <= 1.005 (1.005-1.030); Urobilinogen,Urine 0.2 EU/dl (0.2)
[2023-06-08 00:42] LABS: Erythrocyte Sedimentation Rate 8 mm/hr (0-15)
--- NOTE | 2023-06-08 01:20 | PC.NURSE ---
MD at bedside, reassessing pt and updating on POC
--- NOTE | 2023-06-08 01:29 | PC.NURSE ---
[facility]inda called [facility] about getting a bed for Mr. Miramontes, per Dr Funes. CR
--- NOTE | 2023-06-08 01:35 | PC.NURSE ---
radiology power share to [facility]
--- NOTE | 2023-06-08 01:44 | PC.NURSE ---
[facility]LINE Olsen on the phone with [facility] for transport at this time.
--- NOTE | 2023-06-08 01:55 | PC.NURSE ---
[facility] flight time 1.5 hours checking with gwyn on an aprox 36 min ETA
--- NOTE | 2023-06-08 02:28 | PC.NURSE ---
[place] [facility] accepted flight. ETA 26 mins Jelm notified and patient updated
--- NOTE | 2023-06-08 02:37 | PC.NURSE ---
Report called to [facility]
[2023-06-08 03:35] VITALS: BP 127/70; PULSE 74; RESP 16; TEMP 37; O2SAT 98
== END 2023-06-08 03:37 | disposition short-term general hospital (02) ==
PROVIDERS: Emergency Provider Emergency Medicine
DX: R33.9 Retention of urine, unspecified (principal); R53.1 Weakness; M54.6 Pain in thoracic spine; M54.50 Low back pain, unspecified; I69.351 Hemiplegia and hemiparesis following cerebral infarction affecting right dominant side; I11.0 Hypertensive heart disease with heart failure; I50.20 Unspecified systolic (congestive) heart failure; I25.5 Ischemic cardiomyopathy; I25.10 Atherosclerotic heart disease of native coronary artery without angina pectoris; E78.5 Hyperlipidemia, unspecified; F17.200 Nicotine dependence, unspecified, uncomplicated; I25.2 Old myocardial infarction; R10.9 Unspecified abdominal pain
CPT/HCPCS: 51702; 70450; 70496; 70498; 72128; 72131; 74174; 80053; 81001; 85025; 85610; 85651; 86140; 87040; 87086; 96365; 96366; 96375; 99291; J0696; J3370; Q9967

== ENCOUNTER 2023-07-07 08:55 | Outpatient (CLI) | payer OTHER, SELFPAY ==
[2023-07-07 16:10] LABS: PHA INR Fingerstick 3.4 (0.9-1.1)
== END 2023-07-07 16:15 ==
PROVIDERS: Visit Provider Nurse Practitioner Family
DX: Z51.81 Encounter for therapeutic drug level monitoring (principal); Z79.01 Long term (current) use of anticoagulants
CPT/HCPCS: 85610; 99211; G0463

== ENCOUNTER 2023-07-14 08:44 | Outpatient (CLI) | payer OTHER, SELFPAY ==
[2023-07-14 09:10] LABS: PHA INR Fingerstick 1.7 (0.9-1.1)
== END 2023-07-14 09:14 ==
LOC: ACC 08:46
PROVIDERS: Nurse Practitioner Family; PCP Internal Medicine; Visit Provider Internal Medicine
DX: Z51.81 Encounter for therapeutic drug level monitoring (principal); Z79.01 Long term (current) use of anticoagulants
CPT/HCPCS: 85610; 99211; G0463

== ENCOUNTER 2023-07-28 08:56 | Outpatient (CLI) | payer OTHER, SELFPAY ==
[2023-07-28 14:53] LABS: PHA INR Fingerstick 1.8 (0.9-1.1)
== END 2023-07-28 14:55 ==
PROVIDERS: PCP Internal Medicine; Visit Provider Nurse Practitioner Family
DX: Z51.81 Encounter for therapeutic drug level monitoring (principal); Z79.01 Long term (current) use of anticoagulants
CPT/HCPCS: 85610; 99211; G0463

== ENCOUNTER → 2023-08-08 13:36 | Outpatient (CLI) | payer OTHER, SELFPAY ==
[2023-08-08 15:37] LABS: Anion Gap 13.2 mEq/L (5-15); Blood Urea Nitrogen 13 mg/dl (9-20); Calcium 9.1 mg/dl (8.4-10.2); Carbon Dioxide 23 mmol/L (22.0-30.0); Chloride 108 mmol/L (98-107); Estimated Glomerular Filt Rate 66 ml/min (>60); GFR (African American) 80 ML/MIN (>60); Glucose 139 mg/dl (74-100); Potassium 4.2 mmoL/L (3.5-5.1); Sodium 140 mmol/L (136-145)
== END ==
PROVIDERS: PCP Internal Medicine; Visit Provider Physician Assistant
DX: E78.5 Hyperlipidemia, unspecified (principal); I21.09 ST elevation (STEMI) myocardial infarction involving other coronary artery of anterior wall; I23.6 Thrombosis of atrium, auricular appendage, and ventricle as current complications following acute myocardial infarction; I25.10 Atherosclerotic heart disease of native coronary artery without angina pectoris; I25.5 Ischemic cardiomyopathy; Z86.73 Personal history of transient ischemic attack (TIA), and cerebral infarction without residual deficits; F17.200 Nicotine dependence, unspecified, uncomplicated; I11.0 Hypertensive heart disease with heart failure; I50.20 Unspecified systolic (congestive) heart failure
CPT/HCPCS: 36415; 80048

== ENCOUNTER 2023-08-09 09:48 | Outpatient (CLI) | payer OTHER, SELFPAY ==
[2023-08-09 13:35] LABS: PHA INR Fingerstick 2.2 (0.9-1.1)
== END 2023-08-09 13:43 ==
LOC: ACC 09:49
PROVIDERS: PCP Internal Medicine; Visit Provider Nurse Practitioner Family
DX: Z51.81 Encounter for therapeutic drug level monitoring (principal); Z79.01 Long term (current) use of anticoagulants
CPT/HCPCS: 85610; 99211; G0463

== ENCOUNTER → 2023-08-11 12:59 | Outpatient (CLI) | payer OTHER, SELFPAY ==
--- NOTE | 2023-08-11 13:01 | CA_ITS ---
APPROVED REPORT EXAM: Limited 2D Echocardiogram with contrast [employer] Apprentice: NICKI Minor, RVS Ht: 5 ft 10 in Wt: 231lbs BSA: 2.22 BP: 135/65 mmHg Indications: reduced EF, HF, Previous exam inconclusive for LV thrombus Echo Enhancing Agent Indication: Cardiac Mass Agent(s) / Amount(s) Used: Definity 2 cc Comments: Negative for LV thrombus M-Mode Dimensions RVDd 2.45 cm (0.9-2.6) LA Diam 4.17 cm (1.9-4.0) LVDd 5.93 cm (3.5-5.7) Ao Diam 3.72 cm (2.0-3.7) LVDs 4.06 cm (3.5-5.7) IVSd 1.25 cm (0.6-1.1) PWd 1.34 cm (0.6-1.1) EF (Teich) 58.60% EPSs 0.36 cm FS 31.50% EDV (Teich) 175.20 mL ESV (Teich) 72.50 mL Other Information Study Quality: Fair Conclusion This is a limtied study to evalaute for LVEF and assess for LV apical thrombus. Limited windows were obtained. The left ventricle appears normal in size. Mild global hypokinesis is present. There is near-akinesis of the LV septal, inferoseptal, and anteroseptal LV gibson. LVEF is 45%. Following administration of ultrasound enhancing agent (UEA), there was no evidence of LV thrombus. Electronically signed by : Lieghann Walsh MD 08/11/2023 19:59:02
== END ==
PROVIDERS: PCP Internal Medicine; Visit Provider Physician Assistant
DX: I25.10 Atherosclerotic heart disease of native coronary artery without angina pectoris (principal); I50.20 Unspecified systolic (congestive) heart failure; I21.09 ST elevation (STEMI) myocardial infarction involving other coronary artery of anterior wall; I25.5 Ischemic cardiomyopathy; I23.6 Thrombosis of atrium, auricular appendage, and ventricle as current complications following acute myocardial infarction; E78.5 Hyperlipidemia, unspecified; I63.9 Cerebral infarction, unspecified; F17.200 Nicotine dependence, unspecified, uncomplicated
CPT/HCPCS: 93308; Q9957

== ENCOUNTER 2023-08-12 10:00 | Outpatient (RCR) | payer OTHER, SELFPAY | END 2023-08-12 10:05 | disposition home or self-care (01) | LOC: PT 10:00 | PROVIDERS: Visit Provider Physical Medicine & Rehabilitation | DX: G37.3 Acute transverse myelitis in demyelinating disease of central nervous system (principal) | CPT/HCPCS: 97110; 97112; 97163; 97530 ==

== ENCOUNTER 2023-08-12 11:00 | Outpatient (RCR) | payer OTHER, SELFPAY | END 2023-08-12 11:05 | disposition home or self-care (01) | LOC: OT 11:00 | PROVIDERS: Visit Provider Physical Medicine & Rehabilitation | DX: G37.3 Acute transverse myelitis in demyelinating disease of central nervous system (principal) | CPT/HCPCS: 97110; 97165; 97530 ==

== ENCOUNTER 2024-03-29 16:03 | Outpatient (CLI) | payer OTHER, SELFPAY ==
[2024-03-29 17:09] LABS: Chloride 104 mmol/L (98-107); Sodium 137 mmol/L (136-145)
[2024-03-29 17:10] LABS: Potassium 3.8 mmoL/L (3.5-5.1)
[2024-03-29 17:12] LABS: Alanine Aminotransferase 23 U/L (12-78); Albumin Level 4.5 g/dl (3.5-5.0); Albumin/Globulin Ratio 1.6 (1.1-1.8); Alkaline Phosphatase 122 U/L (38-126); Anion Gap 14.8 mEq/L (5-15); Aspartate Amino Transferase 28 U/L (17-59); Bilirubin,Total 0.4 mg/dl (0.2-1.3); Blood Urea Nitrogen 14 mg/dl (9-20); Carbon Dioxide 22 mmol/L (22.0-30.0); Estimated Glomerular Filt Rate 66 ml/min (>60); GFR (African American) 80 ML/MIN (>60); Globulin 2.9 g/dL (1.3-3.2); Total Protein,Serum 7.4 g/dl (6.3-8.2)
[2024-03-29 17:13] LABS: Calcium 9.8 mg/dl (8.4-10.2); Cholesterol 191 mg/dl (140-200); Glucose 131 mg/dl (74-100); HDL Cholesterol 32 mg/dl (40-60); Triglycerides 374 mg/dl (30-150); VLDL Cholesterol 75 mg/dL (0-40)
[2024-03-29 17:24] LABS: Direct LDL Cholesterol 114.98 mg/dL (100-129)
== END 2024-03-29 23:59 | disposition home or self-care (01) ==
LOC: LAB.DROPOF 16:03
PROVIDERS: PCP Family Medicine; Visit Provider Family Medicine
DX: E78.2 Mixed hyperlipidemia (principal); M54.9 Dorsalgia, unspecified; I25.10 Atherosclerotic heart disease of native coronary artery without angina pectoris; Z72.0 Tobacco use
CPT/HCPCS: 80053; 80061

== ENCOUNTER 2024-08-14 10:16 | Outpatient (CLI) | payer OTHER, SELFPAY ==
[2024-08-14 18:26] LABS: Alanine Aminotransferase 21 U/L (12-78); Albumin Level 4.2 g/dl (3.5-5.0); Albumin/Globulin Ratio 1.4 (1.1-1.8); Alkaline Phosphatase 128 U/L (38-126); Anion Gap 13.5 mEq/L (5-15); Aspartate Amino Transferase 26 U/L (17-59); Bilirubin,Total 0.8 mg/dl (0.2-1.3); Blood Urea Nitrogen 13 mg/dl (9-20); Calcium 9.5 mg/dl (8.4-10.2); Carbon Dioxide 20 mmol/L (22.0-30.0); Chloride 107 mmol/L (98-107); Chol/HDL Ratio 5.2 (1-3.5); Cholesterol 160 mg/dl (140-200); Estimated Glomerular Filt Rate 73 ml/min (>60); GFR (African American) 88 ML/MIN (>60); Globulin 2.9 g/dL (1.3-3.2); Glucose 112 mg/dl (74-100); HDL Cholesterol 31 mg/dl (40-60); Potassium 4.5 mmoL/L (3.5-5.1); Sodium 136 mmol/L (136-145); Total Protein,Serum 7.1 g/dl (6.3-8.2)
[2024-08-14 18:27] LABS: Triglycerides 405 mg/dl (30-150)
[2024-08-14 18:28] LABS: Hemoglobin A1C 5.9 % (4.0-6.0)
[2024-08-14 19:31] LABS: Direct LDL Cholesterol 91.73 mg/dL (100-129)
== END 2024-08-14 23:59 | disposition home or self-care (01) ==
LOC: LAB.DROPOF 08-15 09:30
PROVIDERS: PCP Family Medicine; Visit Provider Family Medicine
DX: E78.5 Hyperlipidemia, unspecified; I50.20 Unspecified systolic (congestive) heart failure; I11.0 Hypertensive heart disease with heart failure; F17.200 Nicotine dependence, unspecified, uncomplicated
CPT/HCPCS: 80053; 80061; 83036